=== PATIENT | male | born 1995 | race Hispanic/Latino ===

== ENCOUNTER 2020-06-13 13:55 | Emergency (ER) | payer OTHER ==
[2020-06-13] MEDS ORDERED: ACETAMINOPHEN 325 MG TAB ONE (14:03)
[2020-06-13] MEDS ORDERED: SODIUM CHLORIDE 0.9% 1000ML 1,000 ML IV ONE ×2 (14:40→14:57)
[2020-06-13 14:42] LABS: BASOPHILS % (AUTO) 0.5 % (0.0-5.0); EOSINOPHILS % (AUTO) 0.2 % (0.0-8.0); LYMPHOCYTES % (AUTO) 13.6 % (21.0-51.0); MEAN CORPUSCULAR HEMOGLOBIN 27.8 pg (27.0-33.0); MEAN CORPUSCULAR HGB CONC 32.9 g/dL (32.0-36.0); MEAN CORPUSCULAR VOLUME 84.7 fL (79-99); MONOCYTES % (AUTO) 3.8 % (3.0-13.0); NEUTROPHILS % (AUTO) 81.3 % (40.0-77.0); PLATELET COUNT (AUTO) 458 K/uL (130-400); RED BLOOD CELL COUNT(AUTO) 4.96 MIL/uL (4.50-6.20); RED CELL DISTRIBUTION WIDTH 12.3 % (11.0-15.5); WHITE BLOOD COUNT (AUTO) 8.4 K/uL (4.8-10.8)
[2020-06-13 14:46] LABS: ABG BASE EXCESS -0.3 mmol/L (-2.0-3.0); ABG HCO3 24.1 mmol/L (21.0-28.0); ABG OXYGEN SATURATION 97.7 % (95.0-99.0); ABG PCO2 39 mmHg (35-48)
[2020-06-13 14:54] LABS: INR 0.87 (0.85-1.15); PARTIAL THROMBOPLASTIN TIME 23.5 SEC (26.3-35.5); PROTHROMBIN TIME 9.4 SEC (9.6-11.6)
[2020-06-13 14:57] LABS: ALBUMIN 3.7 g/dL (3.5-5.0); BILIRUBIN,DIRECT 0.1 mg/dL (0.0-0.3); BILIRUBIN,TOTAL 0.3 mg/dL (0.2-1.0); CREATININE 0.6 mg/dL (0.5-1.5); TOTAL PROTEIN, SERUM 7.9 g/dL (6.0-8.3)
[2020-06-13] MEDS ORDERED: INSULIN HUMULIN R 100 UNIT/ML 3ML ONE (14:57)
[2020-06-13 15:16] LABS: POTASSIUM 3.6 mmol/L (3.5-5.1)
== END 2020-06-13 16:07 | disposition home or self-care (01) ==
LOC: EDH 13:55
DX: S93.401A Sprain of unspecified ligament of right ankle, initial encounter (principal); E11.65 Type 2 diabetes mellitus with hyperglycemia; X50.1XXA Overexertion from prolonged static or awkward postures, initial encounter; Y93.89 Activity, other specified; Y92.098 Other place in other non-institutional residence as the place of occurrence of the external cause; Y99.8 Other external cause status
CPT/HCPCS: 36415; 36600; 73610; 80048; 80076; 82435; 82550; 82803; 82947; 82948; 83605; 83690; 84132; 84295; 85018; 85025; 85610; 85730; 93005; 96361; 96374; 99285; J1815; J7030 ×2

== ENCOUNTER 2022-12-22 22:40 | Inpatient (IN) | payer OTHER ==
[~2022-12-22] VITALS: Ht 157.5 cm; Wt 47.4 kg
[2022-12-22] MEDS ORDERED: 0.9%NACL 1000ML 2,000 ML IV ONE (23:00)
[2022-12-22 23:07] LABS: ABG BASE EXCESS -8.1 mmol/L (-2.0-3.0); ABG HCO3 15.7 mmol/L (21.0-28.0); ABG OXYGEN SATURATION 97.2 % (95.0-99.0); ABG PCO2 29 mmHg (35-48)
[2022-12-22 23:11] LABS: BASOPHILS % (AUTO) 0.3 % (0.0-5.0); EOSINOPHILS % (AUTO) 0.2 % (0.0-8.0); HEMATOCRIT 37.1 % (42-54); LYMPHOCYTES % (AUTO) 20.5 % (21.0-51.0); MEAN CORPUSCULAR HEMOGLOBIN 25.8 pg (27.0-33.0); MEAN CORPUSCULAR HGB CONC 32.1 g/dL (32.0-36.0); MEAN CORPUSCULAR VOLUME 80.3 fL (79-99); MONOCYTES % (AUTO) 7.4 % (3.0-13.0); NEUTROPHILS % (AUTO) 71.1 % (40.0-77.0); PLATELET COUNT (AUTO) 391 K/uL (130-400); RED BLOOD CELL COUNT(AUTO) 4.62 MIL/uL (4.50-6.20); RED CELL DISTRIBUTION WIDTH 14.6 % (11.0-15.5); WHITE BLOOD COUNT (AUTO) 6.2 K/uL (4.8-10.8)
[2022-12-22 23:28] LABS: CARBON DIOXIDE 19 mmol/L (21-32); CHLORIDE 96 mmol/L (101-111); CREATININE 1.1 mg/dL (0.5-1.5); GLOMERULAR FILTR. RATE CALC 94 mL/min (>90); GLUCOSE,RANDOM 360 mg/dL (70-105); POTASSIUM 3.5 mmol/L (3.5-5.1); SODIUM SERUM 133 mmol/L (136-145); UREA NITROGEN, BLOOD 31 mg/dL (7-18)
[2022-12-22 23:32] LABS: ALANINE AMINOTRANSFERASE 21 U/L (12-78); ALBUMIN 4.2 g/dL (3.5-5.0); ASPARTATE AMINOTRANSFERASE 8 U/L (10-37); TOTAL PROTEIN, SERUM 8.8 g/dL (6.0-8.3)
[2022-12-22] MEDS ORDERED: INSULIN REGULAR, HUMAN 3ML 100 UNIT in 0.9%NACL 100ML 99 ML IV STA ×2 (23:41)
[2022-12-22 23:44] LABS: LIPASE < 50 U/L (114-286)
[2022-12-22] MEDS ORDERED: INSULIN HUMULIN R 100 UNIT/ML 3ML ONE (23:54)
[2022-12-22 23:58] LABS: MAGNESIUM 2.3 mg/dL (1.80-2.40); PHOSPHORUS 3.7 mg/dL (2.5-4.9)
[2022-12-23] MEDS ORDERED: D5W-1/2 NS/20MEQ KCL 1,000 ML IV SCH
[2022-12-23] MEDS ORDERED: POTASSIUM CHLORIDE 20MEQ/100ML 100 ML IV ONE (00:02)
[2022-12-23] MEDS ORDERED: ACETAMINOPHEN 325 MG TAB PO PRN ×2 (00:30)
[2022-12-23] MEDS ORDERED: LIDOCAINE HCL-MPF 1% 2ML VIAL IV PRN ×5 (00:30→09:30)
[2022-12-23] MEDS ORDERED: HYDROMORPHONE 1 MG INJ IV PRN (00:30)
[2022-12-23] MEDS ORDERED: 0.9%NACL 1000ML 1,000 ML IV SCH (00:30)
[2022-12-23] MEDS ORDERED: MORPHINE 2 MG SYG IV PRN (00:30)
[2022-12-23] MEDS ORDERED: POTASSIUM CHLORIDE 20 MEQ/100 ML BAG IV SCH (00:30)
[2022-12-23] MEDS ORDERED: POTASSIUM CHLORIDE 10MEQ/100ML 100 ML IV PRN (00:30)
[2022-12-23 01:48] LABS: APPEARANCE,URINE CLEAR (CLEAR); BILIRUBIN,URINE NEGATIVE (NEGATIVE); COLOR,URINE LIGHT-YELLOW (YELLOW); GLUCOSE, URINE (UA) >=1000 mg/dL (NEGATIVE); KETONES,URINE 150 mg/dL (NEGATIVE); LEUKOCYTE ESTERASE ,URINE NEGATIVE Leu/uL (NEGATIVE); NITRATE,URINE NEGATIVE (NEGATIVE); OCCULT BLOOD,URINE NEGATIVE (NEGATIVE); PH,URINE 6.5 (5.0-8.0); PROTEIN,URINE 30 mg/dL (NEGATIVE); UROBILINOGEN,URINE 0.2 mg/dL (0.2-1.0)
[2022-12-23 01:50] LABS: BACTERIA,URINE FEW /HPF (None Seen); MUCUS,URINE RARE LPF (None Seen); SQUAMOUS EPITHELIAL CELL,UR RARE /HPF (0-2)
[2022-12-23 03:50] LABS: CREATININE 0.8 mg/dL (0.5-1.5); POTASSIUM 3.3 mmol/L (3.5-5.1)
[2022-12-23 04:29] LABS: HEMOGLOBIN A1C 7.7 % (4.0-6.0)
[2022-12-23 06:40] LABS: AMPHET/METH SCREEN,URINE NEGATIVE (NEGATIVE); BARBITURATE SCREEN, URINE NEGATIVE (NEGATIVE); BENZODIAZEPINES SCREEN,URINE NEGATIVE (NEGATIVE); CANNABINOID SCREEN,URINE NEGATIVE (NEGATIVE); COCAINE SCREEN,URINE NEGATIVE (NEGATIVE); OPIATE SCREEN,URINE NEGATIVE (NEGATIVE); PHENCYCLIDINE SCREEN,URINE NEGATIVE (NEGATIVE)
[2022-12-23 08:10] LABS: CREATININE 0.6 mg/dL (0.5-1.5)
[2022-12-23 08:20] LABS: ABG BASE EXCESS -1.7 mmol/L (-2.0-3.0); ABG HCO3 21.9 mmol/L (21.0-28.0); ABG OXYGEN SATURATION 97.1 % (95.0-99.0); ABG PCO2 34 mmHg (35-48)
[2022-12-23] MEDS ORDERED: GLUCAGON 1MG KIT 1 MG ML IM PRN (08:30)
[2022-12-23] MEDS ORDERED: DEXTROSE 50%-WATER 50 ML DISP.SYRIN IV PRN (08:30)
[2022-12-23] MEDS ORDERED: POTASSIUM CHLORIDE 20MEQ/100ML 100 ML IV PRN ×4 (08:30→09:30)
[2022-12-23] MEDS ORDERED: POTASSIUM CHLORIDE 10% ELIXIR 20 MEQ/15 ML UDCUP PO PRN ×2 (08:30→09:30)
[2022-12-23 08:45] VITALS: BP 115/80
[2022-12-23 08:54] LABS: CHOLESTEROL 117 mg/dL (<200); HDL CHOLESTEROL 38 mg/dL (29-71); LDL DIRECT 55 mg/dL (0-99); TRIGLYCERIDES 83 mg/dL (30-200)
[2022-12-23] MEDS ORDERED: FAMOTIDINE 20MG VIAL IV SCH (09:00)
[2022-12-23] MEDS ORDERED: KCL 20 MEQ ERTAB PO PRN (09:30)
[2022-12-23] MEDS ORDERED: MAGNESIUM 2GM PREMIX 50ML 50 ML IV PRN (09:30)
[2022-12-23] MEDS: LACTATED RINGERS 1000ML 1,000 ML IV SCH (09:57)
[2022-12-23] MEDS: ENOXAPARIN SODIUM 40 MG/0.4 ML SYRINGE SQ SCH (09:58)
[2022-12-23] MEDS: FAMOTIDINE 20MG VIAL IV SCH ×2 (09:58→21:01)
[2022-12-23] MEDS: KCL 20 MEQ ERTAB PO PRN ×2 (09:59→18:15)
[2022-12-23] MEDS ORDERED: INSULIN GLARGINE 100 UNITS/ML 10 ML VIAL SQ ONE (10:30)
[2022-12-23] MEDS: ONDANSETRON 4MG INJ IV PRN ×2 (11:21→18:14)
[2022-12-23 12:00] VITALS: BP 140/82
[2022-12-23] MEDS: INSULIN HUMULIN R 100 UNIT/ML 3ML SQ SCH ×3 (13:03→20:28)
[2022-12-23 16:00] VITALS: BP 131/80
[2022-12-23] MEDS: INSULIN GLARGINE 100 UNITS/ML 10 ML VIAL SQ SCH (21:00)
[2022-12-23 21:06] VITALS: BP 102/70
[2022-12-24] VITALS (7 sets, daily range): BP systolic 100–141; BP diastolic 66–90
[2022-12-24] MEDS: ONDANSETRON 4MG INJ IV PRN ×2 (00:14→06:14)
[2022-12-24] MEDS: LACTATED RINGERS 1000ML 1,000 ML IV SCH ×2 (00:14→05:30)
[2022-12-24] MEDS: KCL 20 MEQ ERTAB PO PRN ×2 (00:15→06:20)
[2022-12-24 04:36] LABS: MEAN CORPUSCULAR HEMOGLOBIN 26.3 pg (27.0-33.0); MEAN CORPUSCULAR HGB CONC 32.6 g/dL (32.0-36.0); MEAN CORPUSCULAR VOLUME 80.6 fL (79-99); RED BLOOD CELL COUNT(AUTO) 4.22 MIL/uL (4.50-6.20); RED CELL DISTRIBUTION WIDTH 14.3 % (11.0-15.5)
[2022-12-24 04:43] LABS: CREATININE 0.6 mg/dL (0.5-1.5); MAGNESIUM 1.6 mg/dL (1.80-2.40); POTASSIUM 3.4 mmol/L (3.5-5.1)
[2022-12-24] MEDS: MAGNESIUM 2GM PREMIX 50ML 50 ML IV PRN (05:04)
[2022-12-24] MEDS: INSULIN HUMULIN R 100 UNIT/ML 3ML SQ SCH ×3 (06:13→20:48)
[2022-12-24] MEDS: INSULIN GLARGINE 100 UNITS/ML 10 ML VIAL SQ SCH ×2 (06:24→20:49)
[2022-12-24] MEDS: FAMOTIDINE 20MG VIAL IV SCH (09:19)
[2022-12-24] MEDS: ENOXAPARIN SODIUM 40 MG/0.4 ML SYRINGE SQ SCH (09:19)
[2022-12-24] MEDS: FAMOTIDINE 20MG TAB PO SCH (20:44)
[2022-12-25 03:32] VITALS: BP 105/75
[2022-12-25 05:25] LABS: BASOPHILS % (AUTO) 0.8 % (0.0-5.0); EOSINOPHILS % (AUTO) 3.6 % (0.0-8.0); HEMATOCRIT 33.4 % (42-54); LYMPHOCYTES % (AUTO) 33.2 % (21.0-51.0); MEAN CORPUSCULAR HEMOGLOBIN 26.6 pg (27.0-33.0); MEAN CORPUSCULAR HGB CONC 32.9 g/dL (32.0-36.0); MEAN CORPUSCULAR VOLUME 80.9 fL (79-99); MONOCYTES % (AUTO) 7.4 % (3.0-13.0); NEUTROPHILS % (AUTO) 54.6 % (40.0-77.0); PLATELET COUNT (AUTO) 294 K/uL (130-400); RED BLOOD CELL COUNT(AUTO) 4.13 MIL/uL (4.50-6.20); RED CELL DISTRIBUTION WIDTH 14.4 % (11.0-15.5)
[2022-12-25 05:37] LABS: CREATININE 0.5 mg/dL (0.5-1.5); MAGNESIUM 1.9 mg/dL (1.80-2.40); PHOSPHORUS 3.5 mg/dL (2.5-4.9)
[2022-12-25 05:38] LABS: POTASSIUM 2.9 mmol/L (3.5-5.1)
[2022-12-25] MEDS: INSULIN HUMULIN R 100 UNIT/ML 3ML SQ SCH ×4 (06:30→19:58)
[2022-12-25 08:13] VITALS: BP 96/68
[2022-12-25] MEDS: FAMOTIDINE 20MG TAB PO SCH ×2 (09:46→19:53)
[2022-12-25] MEDS: ENOXAPARIN SODIUM 40 MG/0.4 ML SYRINGE SQ SCH (09:47)
[2022-12-25] MEDS: KCL 20 MEQ ERTAB PO PRN ×4 (09:47→17:47)
[2022-12-25 11:19] VITALS: BP 105/68
[2022-12-25 17:14] VITALS: BP 111/75
[2022-12-25] MEDS: INSULIN GLARGINE 100 UNITS/ML 10 ML VIAL SQ SCH (19:57)
[2022-12-25 20:11] VITALS: BP 119/83
[2022-12-26] VITALS (7 sets, daily range): BP systolic 71–100; BP diastolic 33–61
[2022-12-26] MEDS: INSULIN HUMULIN R 100 UNIT/ML 3ML SQ SCH ×6 (06:09→17:07)
[2022-12-26] MEDS: MAGNESIUM 2GM PREMIX 50ML 50 ML IV PRN (06:56)
[2022-12-26 06:58] LABS: MAGNESIUM 1.9 mg/dL (1.80-2.40)
[2022-12-26] MEDS: ENOXAPARIN SODIUM 40 MG/0.4 ML SYRINGE SQ SCH (07:59)
[2022-12-26] MEDS: FAMOTIDINE 20MG TAB PO SCH (07:59)
[2022-12-26] MEDS: METRONIDAZOLE 500 MG TABLET PO SCH ×2 (08:54→13:52)
[2022-12-26] MEDS ORDERED: PHARMACY COMMUNICATION MISC SCH (09:00)
[2022-12-26] MEDS ORDERED: COMPOUND PO MISCELLANEOUS 1 EACH MISC MISC PRN (09:00)
[2022-12-26] MEDS ORDERED: 0.9%NACL 1000ML 1,000 ML IV SCH ×2 (09:00)
[2022-12-26] MEDS: VANCOMYCIN 250MG/5ML ORAL SOLUTION 40ML PO SCH ×4 (09:51→14:24)
[2022-12-26 10:15] LABS: MEAN CORPUSCULAR HEMOGLOBIN 26.4 pg (27.0-33.0); MEAN CORPUSCULAR HGB CONC 31.6 g/dL (32.0-36.0); MEAN CORPUSCULAR VOLUME 83.8 fL (79-99); PLATELET COUNT (AUTO) 283 K/uL (130-400); RED BLOOD CELL COUNT(AUTO) 3.82 MIL/uL (4.50-6.20)
[2022-12-26 10:24] LABS: CREATININE 0.6 mg/dL (0.5-1.5)
[2022-12-26 10:29] LABS: ALBUMIN 2.9 g/dL (3.5-5.0); TOTAL PROTEIN, SERUM 6.1 g/dL (6.0-8.3)
[2022-12-26 10:56] LABS: EOSINOPHILS % (MANUAL) 3 % (1-6); LYMPHOCYTES % (MANUAL) 22 % (22-44); MAN.DIFF COMMENT-IMPRESSION MANUAL DIFFERENTIAL; MONOCYTES % (MANUAL) 4 % (2-9); SEGMENTED NEUTROPHILS % 71 % (40-70)
[2022-12-26 10:57] LABS: PLATELET MORPHOLOGY COMMENT ADEQUATE
[2022-12-26] MEDS ORDERED: LOPERAMIDE HCL 2 MG CAP PO SCH (16:30)
[2022-12-26] MEDS ORDERED: METR-172 PO (16:35)
[2022-12-26] MEDS ORDERED: INSU100I35 SQ (16:35)
== END 2022-12-26 18:35 | disposition home or self-care (01) | DRG 639 ==
LOC: EDH 22:40 → EDHIP 22:41 → 2BH 12-23 08:54 → 3AH 12-23 14:25
PROVIDERS: ADMIT Internal Medicine; ATTEND Internal Medicine
DX: E11.10 Type 2 diabetes mellitus with ketoacidosis without coma (principal); E86.0 Dehydration; Z20.822 Contact with and (suspected) exposure to COVID-19; Z91.199 Patient's noncompliance with other medical treatment and regimen due to unspecified reason; Z79.4 Long term (current) use of insulin; Z83.3 Family history of diabetes mellitus
CPT/HCPCS: 36415; 36600; 71045; 74176; 80048; 80053; 80061; 80305; 81001; 82010; 82803; 82948; 83036; 83605; 83690; 83735; 83930; 84100; 84132; 84484; 85025; 85027; 86341; 87040; 87324; 87635; 87804; 87880; 93005; 97039; C9803; G0378; J1650; J1815; J2405; J3370; J3475; J3480; J3490; J7070

== ENCOUNTER 2023-01-10 13:06 | Observation (INO) | payer OTHER ==
[~2023-01-10] VITALS: Ht 157.5 cm; Wt 46.7 kg
[~2023-01-10 13:06] MED LIST: INSU100I35 SQ; METR-172 PO
[2023-01-10 13:59] LABS: BASOPHILS % (AUTO) 0.2 % (0.0-5.0); LYMPHOCYTES % (AUTO) 10.4 % (21.0-51.0); MEAN CORPUSCULAR HEMOGLOBIN 26.4 pg (27.0-33.0); MEAN CORPUSCULAR HGB CONC 31.9 g/dL (32.0-36.0); MEAN CORPUSCULAR VOLUME 82.8 fL (79-99); MONOCYTES % (AUTO) 1.5 % (3.0-13.0); NEUTROPHILS % (AUTO) 87.7 % (40.0-77.0); PLATELET COUNT (AUTO) 359 K/uL (130-400); RED BLOOD CELL COUNT(AUTO) 4.47 MIL/uL (4.50-6.20); RED CELL DISTRIBUTION WIDTH 15.2 % (11.0-15.5)
[2023-01-10] MEDS ORDERED: ZOSYN 3.375GM+NS 50ML 50 ML IVPB STA (14:07)
[2023-01-10 14:19] LABS: CREATININE 0.8 mg/dL (0.5-1.5); POTASSIUM 4.2 mmol/L (3.5-5.1)
[2023-01-10 14:24] LABS: ALBUMIN 3.9 g/dL (3.5-5.0); TOTAL PROTEIN, SERUM 8.1 g/dL (6.0-8.3)
[2023-01-10] MEDS ORDERED: 0.9%NACL 1000ML 1,638 ML IV ONE (14:30)
[2023-01-10 14:53] LABS: ABG OXYGEN SATURATION 75.9 % (95.0-99.0); BASE EXCESS,VENOUS BLOOD GAS 0.7 (-2.0-3.0); HCO3,VENOUS BLOOD GAS 25.8 (21.0-28.0); PCO2,VENOUS BLOOD GAS 43 (35-48); PH,VENOUS BLOOD GAS 7.395 (7.350-7.450)
[2023-01-10] MEDS ORDERED: ACETAMINOPHEN 500 MG TABLET PO ONE (15:00)
[2023-01-10 15:01] LABS: AMPHET/METH SCREEN,URINE NEGATIVE (NEGATIVE); BARBITURATE SCREEN, URINE NEGATIVE (NEGATIVE); BENZODIAZEPINES SCREEN,URINE NEGATIVE (NEGATIVE); CANNABINOID SCREEN,URINE NEGATIVE (NEGATIVE); COCAINE SCREEN,URINE NEGATIVE (NEGATIVE); OPIATE SCREEN,URINE NEGATIVE (NEGATIVE); PHENCYCLIDINE SCREEN,URINE NEGATIVE (NEGATIVE)
[2023-01-10 15:05] LABS: APPEARANCE,URINE CLEAR (CLEAR); BILIRUBIN,URINE NEGATIVE (NEGATIVE); COLOR,URINE LIGHT-YELLOW (YELLOW); GLUCOSE, URINE (UA) >=1000 mg/dL (NEGATIVE); KETONES,URINE 40 mg/dL (NEGATIVE); LEUKOCYTE ESTERASE ,URINE NEGATIVE Leu/uL (NEGATIVE); NITRATE,URINE NEGATIVE (NEGATIVE); OCCULT BLOOD,URINE NEGATIVE (NEGATIVE); PH,URINE 6.5 (5.0-8.0); PROTEIN,URINE NEGATIVE (NEGATIVE); UROBILINOGEN,URINE 0.2 mg/dL (0.2-1.0)
[2023-01-10 15:07] LABS: MUCUS,URINE RARE LPF (None Seen); RBC,URINE 0-1 /HPF (0-1); SQUAMOUS EPITHELIAL CELL,UR RARE /HPF (0-2); WBC,URINE 0-1 /HPF (0-1)
[2023-01-10] MEDS ORDERED: ONDANSETRON 4MG INJ ONE (16:07)
[2023-01-10] MEDS ORDERED: ONDANSETRON 4MG INJ IVP STA (16:11)
[2023-01-10] MEDS ORDERED: ONDANSETRON 4MG INJ IVP SCH (16:30)
[2023-01-10] MEDS ORDERED: MORPHINE 4 MG SYG IV PRN (19:30)
[2023-01-10] MEDS ORDERED: MORPHINE 2 MG SYG IV PRN (19:30)
[2023-01-10] MEDS ORDERED: ACETAMINOPHEN 325 MG TAB PO PRN ×2 (19:30)
[2023-01-10] MEDS ORDERED: ONDANSETRON 4MG INJ IV PRN (19:30)
[2023-01-10] MEDS: ZOSYN 3.375GM+NS 50ML 50 ML IVPB SCH (20:03)
[2023-01-10] MEDS: FAMOTIDINE 20MG VIAL IV SCH (20:14)
[2023-01-10] MEDS: LACTATED RINGERS 1000ML 1,000 ML IV SCH (20:15)
[2023-01-10] MEDS: INSULIN HUMULIN R 100 UNIT/ML 3ML SQ SCH (20:15)
[2023-01-11 00:12] VITALS: BP 108/61
[2023-01-11 03:12] VITALS: BP 127/75
[2023-01-11 03:39] LABS: BASOPHILS % (AUTO) 0.7 % (0.0-5.0); EOSINOPHILS % (AUTO) 1.5 % (0.0-8.0); HEMATOCRIT 30.8 % (42-54); LYMPHOCYTES % (AUTO) 26.5 % (21.0-51.0); MEAN CORPUSCULAR HEMOGLOBIN 26.4 pg (27.0-33.0); MEAN CORPUSCULAR HGB CONC 31.5 g/dL (32.0-36.0); MEAN CORPUSCULAR VOLUME 83.9 fL (79-99); MONOCYTES % (AUTO) 6.2 % (3.0-13.0); NEUTROPHILS % (AUTO) 64.9 % (40.0-77.0); PLATELET COUNT (AUTO) 287 K/uL (130-400); RED BLOOD CELL COUNT(AUTO) 3.67 MIL/uL (4.50-6.20); RED CELL DISTRIBUTION WIDTH 15.6 % (11.0-15.5); WHITE BLOOD COUNT (AUTO) 5.8 K/uL (4.8-10.8)
[2023-01-11 03:53] LABS: CREATININE 0.5 mg/dL (0.5-1.5); MAGNESIUM 1.9 mg/dL (1.80-2.40); PHOSPHORUS 4.2 mg/dL (2.5-4.9); POTASSIUM 3.4 mmol/L (3.5-5.1)
[2023-01-11 03:56] LABS: HEMOGLOBIN A1C 7.8 % (4.0-6.0)
[2023-01-11] MEDS ORDERED: MAGNESIUM 2GM PREMIX 50ML 50 ML IV PRN (04:30)
[2023-01-11] MEDS ORDERED: POTASSIUM CHLORIDE 20MEQ/100ML 100 ML IV PRN (04:30)
[2023-01-11] MEDS ORDERED: KCL 20 MEQ ERTAB PO PRN (04:30)
[2023-01-11] MEDS: ZOSYN 3.375GM+NS 50ML 50 ML IVPB SCH ×2 (04:56→13:00)
[2023-01-11] MEDS: INSULIN HUMULIN R 100 UNIT/ML 3ML SQ SCH ×2 (06:24→11:30)
[2023-01-11] MEDS: POTASSIUM CHLORIDE 10% ELIXIR 20 MEQ/15 ML UDCUP PO PRN ×2 (06:31→10:44)
[2023-01-11 07:55] VITALS: BP 115/77
[2023-01-11] MEDS ORDERED: ENOXAPARIN SODIUM 40 MG/0.4 ML SYRINGE SQ SCH (09:00)
[2023-01-11] MEDS: LACTATED RINGERS 1000ML 1,000 ML IV SCH (09:09)
[2023-01-11] MEDS: FAMOTIDINE 20MG VIAL IV SCH (09:09)
[2023-01-11] MEDS ORDERED: OMEP40CA21 PO (10:59)
[2023-01-11] MEDS ORDERED: SERT-438 PO (10:59)
[2023-01-11] MEDS ORDERED: DICY20TA2 PO (11:00)
[2023-01-11] MEDS ORDERED: CEPH500C2 PO (11:23)
[2023-01-11] MEDS ORDERED: METO5TAB87 PO (11:23)
[2023-01-11] MEDS ORDERED: METOCLOPRAMIDE 10 MG/2 ML VIAL IVP SCH (11:30)
[2023-01-11 12:15] VITALS: BP 132/83
== END 2023-01-11 14:10 | disposition home or self-care (01) ==
LOC: EDH 13:06 → INTOOBSV 13:07 → EDHIP 13:07 → 2AH 23:50
PROVIDERS: ADMIT Internal Medicine; ATTEND Internal Medicine
DX: A04.9 Bacterial intestinal infection, unspecified (principal); Z20.822 Contact with and (suspected) exposure to COVID-19; E86.1 Hypovolemia; I95.9 Hypotension, unspecified; E86.0 Dehydration; E11.9 Type 2 diabetes mellitus without complications; F32.A Depression, unspecified; Z51.5 Encounter for palliative care; Z79.899 Other long term (current) drug therapy
CPT/HCPCS: 96372 ×2; 96361 ×2; 96365; 96366 ×2; 96375 ×2; 82550; 84484; 80053; 82803; 83880; 80305; 85025 ×2; 87040 ×2; 87804 ×2; 82948 ×6; 83605 ×2; 82010; 81001; 36415 ×2; 87635; 71045; 74176; 76705; 99291; 93005 ×2; 36600; 84145; 96376; 96367; 83036; 83735; 84100; 80048; G0378 ×19; C9803; J3490 ×2; J7030; J2405; J2543 ×2; J1815; J3475; J1650; J2765

== ENCOUNTER 2023-01-20 21:25 | Inpatient (IN) | payer OTHER ==
[~2023-01-20] VITALS: Ht 157.5 cm; Wt 44.8 kg
[~2023-01-20 21:25] MED LIST changes: +CEPH500C2 PO; +DICY20TA2 PO; +METO5TAB87 PO; +OMEP40CA21 PO; +SERT-438 PO
[2023-01-20 22:36] LABS: BASOPHILS % (AUTO) 0.2 % (0.0-5.0); HEMATOCRIT 41.7 % (42-54); LYMPHOCYTES % (AUTO) 5.5 % (21.0-51.0); MEAN CORPUSCULAR HGB CONC 31.9 g/dL (32.0-36.0); MEAN CORPUSCULAR VOLUME 84.8 fL (79-99); MONOCYTES % (AUTO) 5.3 % (3.0-13.0); NEUTROPHILS % (AUTO) 88.4 % (40.0-77.0); PLATELET COUNT (AUTO) 293 K/uL (130-400); RED BLOOD CELL COUNT(AUTO) 4.92 MIL/uL (4.50-6.20); RED CELL DISTRIBUTION WIDTH 14.6 % (11.0-15.5); WHITE BLOOD COUNT (AUTO) 10.5 K/uL (4.8-10.8)
[2023-01-20 22:54] LABS: CHLORIDE 95 mmol/L (101-111); CREATININE 0.6 mg/dL (0.5-1.5); GLOMERULAR FILTR. RATE CALC 136 mL/min (>90); GLUCOSE,RANDOM 263 mg/dL (70-105); SODIUM SERUM 129 mmol/L (136-145); UREA NITROGEN, BLOOD 22 mg/dL (7-18)
[2023-01-20 22:57] LABS: ALANINE AMINOTRANSFERASE 12 U/L (12-78); ALBUMIN 1.8 g/dL (3.5-5.0); ASPARTATE AMINOTRANSFERASE 9 U/L (10-37); TOTAL PROTEIN, SERUM 4.6 g/dL (6.0-8.3)
[2023-01-20 22:59] LABS: LIPASE < 50 U/L (114-286)
[2023-01-20 23:07] LABS: CARBON DIOXIDE 6 mmol/L (21-32)
[2023-01-21 00:11] LABS: ABG BASE EXCESS -13.5 mmol/L (-2.0-3.0); ABG HCO3 10.3 mmol/L (21.0-28.0); ABG PCO2 21 mmHg (35-48)
[2023-01-21] MEDS ORDERED: 0.9%NACL 1000ML 1,000 ML IV ONE (00:30)
[2023-01-21] MEDS ORDERED: ONDANSETRON 4MG INJ IVP ONE (00:30)
[2023-01-21] MEDS ORDERED: INSULIN HUMULIN R 100 UNIT/ML 3ML IV ONE (00:30)
[2023-01-21] MEDS ORDERED: DEXTROSE 10%-WATER 250 ML IV.SOLN. IV SCH (00:30)
[2023-01-21] MEDS ORDERED: DEXTROSE 10%-WATER 1,000 ML IV ONE (00:44)
[2023-01-21] MEDS ORDERED: INSULIN REGULAR, HUMAN 3ML 100 UNIT in 0.9%NACL 100ML 100 ML IV SCH ×4 (01:00→01:30)
[2023-01-21] MEDS ORDERED: SODIUM CL 4MEQ/ML 30ML 154 MEQ in DEXTROSE 10%-WATER 961.5 ML IV SCH (01:00)
[2023-01-21 01:03] LABS: APPEARANCE,URINE CLEAR (CLEAR); BILIRUBIN,URINE NEGATIVE (NEGATIVE); COLOR,URINE LIGHT-YELLOW (YELLOW); GLUCOSE, URINE (UA) >=1000 mg/dL (NEGATIVE); KETONES,URINE 150 mg/dL (NEGATIVE); LEUKOCYTE ESTERASE ,URINE NEGATIVE Leu/uL (NEGATIVE); NITRATE,URINE NEGATIVE (NEGATIVE); OCCULT BLOOD,URINE NEGATIVE (NEGATIVE); PH,URINE 5.5 (5.0-8.0); PROTEIN,URINE 30 mg/dL (NEGATIVE); UROBILINOGEN,URINE 0.2 mg/dL (0.2-1.0)
[2023-01-21 01:04] LABS: MUCUS,URINE RARE LPF (None Seen); RBC,URINE 0-1 /HPF (0-1); SQUAMOUS EPITHELIAL CELL,UR RARE /HPF (0-2); WBC,URINE 0-1 /HPF (0-1)
[2023-01-21 01:17] LABS: AMPHET/METH SCREEN,URINE NEGATIVE (NEGATIVE); BARBITURATE SCREEN, URINE NEGATIVE (NEGATIVE); BENZODIAZEPINES SCREEN,URINE NEGATIVE (NEGATIVE); CANNABINOID SCREEN,URINE NEGATIVE (NEGATIVE); COCAINE SCREEN,URINE NEGATIVE (NEGATIVE); OPIATE SCREEN,URINE NEGATIVE (NEGATIVE); PHENCYCLIDINE SCREEN,URINE NEGATIVE (NEGATIVE)
[2023-01-21] MEDS ORDERED: LACTULOSE 20 GM/30 ML UDCUP PO PRN (01:30)
[2023-01-21] MEDS ORDERED: D5W-1/2 NS/20MEQ KCL 1,000 ML IV SCH (01:30)
[2023-01-21] MEDS ORDERED: MORPHINE 2 MG SYG IV PRN (01:30)
[2023-01-21] MEDS ORDERED: POTASSIUM CHLORIDE 10MEQ/100ML 100 ML IV PRN (01:30)
[2023-01-21] MEDS ORDERED: 0.9%NACL 1000ML 1,000 ML IV SCH (01:30)
[2023-01-21] MEDS ORDERED: ACETAMINOPHEN 325 MG TAB PO PRN (01:30)
[2023-01-21] MEDS ORDERED: MAGNESIUM 2GM PREMIX 50ML 50 ML IV SCH (01:30)
[2023-01-21 01:48] LABS: ABG BASE EXCESS -9.1 mmol/L (-2.0-3.0); ABG HCO3 13.9 mmol/L (21.0-28.0); ABG OXYGEN SATURATION 98.1 % (95.0-99.0); ABG PCO2 24 mmHg (35-48)
[2023-01-21 02:22] LABS: CREATININE 1.1 mg/dL (0.5-1.5); POTASSIUM 3.8 mmol/L (3.5-5.1)
[2023-01-21] MEDS: ONDANSETRON 4MG INJ IV PRN ×3 (05:39→21:59)
[2023-01-21 05:46] LABS: ABG BASE EXCESS -7.6 mmol/L (-2.0-3.0); ABG PCO2 28 mmHg (35-48)
[2023-01-21 05:50] LABS: CREATININE 0.9 mg/dL (0.5-1.5); POTASSIUM 3.6 mmol/L (3.5-5.1)
[2023-01-21] MEDS: FAMOTIDINE 20MG VIAL IV SCH ×2 (09:21→21:59)
[2023-01-21 09:37] LABS: CREATININE 0.8 mg/dL (0.5-1.5); POTASSIUM 3.4 mmol/L (3.5-5.1)
[2023-01-21 09:41] LABS: ABG BASE EXCESS -5.1 mmol/L (-2.0-3.0); ABG HCO3 18.7 mmol/L (21.0-28.0); ABG OXYGEN SATURATION 97.4 % (95.0-99.0); ABG PCO2 32 mmHg (35-48)
[2023-01-21] MEDS: INSULIN GLARGINE 100 UNITS/ML 10 ML VIAL SQ SCH ×2 (13:54→22:13)
[2023-01-21 13:59] LABS: CREATININE 0.8 mg/dL (0.5-1.5); POTASSIUM 3.7 mmol/L (3.5-5.1)
[2023-01-21 16:35] VITALS: BP 117/73
[2023-01-21] MEDS: 0.9%NACL 1000ML 1,000 ML IV SCH (18:45)
[2023-01-21 19:34] LABS: CREATININE 0.7 mg/dL (0.5-1.5); POTASSIUM 3.4 mmol/L (3.5-5.1)
[2023-01-21 21:30] VITALS: BP 105/65
[2023-01-21 21:59] LABS: CREATININE 0.4 mg/dL (0.5-1.5)
[2023-01-21] MEDS ORDERED: KCL 20 MEQ ERTAB PO ONE (22:00)
[2023-01-21 22:03] LABS: POTASSIUM 2.2 mmol/L (3.5-5.1)
[2023-01-21] MEDS: INSULIN HUMULIN R 100 UNIT/ML 3ML SQ SCH (22:12)
[2023-01-21 22:15] LABS: ABG BASE EXCESS -6.2 mmol/L (-2.0-3.0); ABG HCO3 17.4 mmol/L (21.0-28.0); ABG OXYGEN SATURATION 97.6 % (95.0-99.0); ABG PCO2 30 mmHg (35-48)
[2023-01-21] MEDS ORDERED: MAGNESIUM 2GM PREMIX 50ML 50 ML IV ONE (22:19)
[2023-01-21] MEDS ORDERED: POTASSIUM CHLORIDE 20 MEQ/100 ML BAG IV SCH (22:30)
[2023-01-21 23:41] VITALS: BP 109/67
[2023-01-22] MEDS: 0.9%NACL 1000ML 1,000 ML IV SCH ×4 (00:44→19:17)
[2023-01-22 04:21] VITALS: BP 116/81
[2023-01-22] MEDS: ONDANSETRON 4MG INJ IV PRN ×2 (05:25→19:15)
[2023-01-22] MEDS: INSULIN HUMULIN R 100 UNIT/ML 3ML SQ SCH ×4 (06:51→20:13)
[2023-01-22 06:54] LABS: MAGNESIUM 1.9 mg/dL (1.80-2.40); POTASSIUM 3.1 mmol/L (3.5-5.1)
[2023-01-22 07:30] LABS: HEMATOCRIT 32.6 % (42-54); MEAN CORPUSCULAR HEMOGLOBIN 26.8 pg (27.0-33.0); MEAN CORPUSCULAR HGB CONC 33.4 g/dL (32.0-36.0); MEAN CORPUSCULAR VOLUME 80.1 fL (79-99); RED BLOOD CELL COUNT(AUTO) 4.07 MIL/uL (4.50-6.20); RED CELL DISTRIBUTION WIDTH 14.9 % (11.0-15.5); WHITE BLOOD COUNT (AUTO) 6.9 K/uL (4.8-10.8)
[2023-01-22 07:41] LABS: ALBUMIN 3.2 g/dL (3.5-5.0); CREATININE 0.6 mg/dL (0.5-1.5); POTASSIUM 3.1 mmol/L (3.5-5.1); TOTAL PROTEIN, SERUM 6.4 g/dL (6.0-8.3)
[2023-01-22 08:00] VITALS: BP 110/73
[2023-01-22] MEDS ORDERED: KCL 20 MEQ ERTAB PO PRN (08:30)
[2023-01-22] MEDS ORDERED: POTASSIUM CHLORIDE 20MEQ/100ML 100 ML IV PRN (08:30)
[2023-01-22] MEDS: FAMOTIDINE 20MG VIAL IV SCH ×2 (08:57→20:13)
[2023-01-22] MEDS: MAGNESIUM 2GM PREMIX 50ML 50 ML IV PRN (08:57)
[2023-01-22] MEDS ORDERED: KCL 20 MEQ ERTAB PO ONE (09:30)
[2023-01-22] MEDS: METOCLOPRAMIDE 10 MG/2 ML VIAL IVP SCH ×2 (10:31→20:13)
[2023-01-22 12:00] VITALS: BP 113/80
[2023-01-22 16:00] VITALS: BP 127/88
[2023-01-22 19:23] VITALS: BP 130/84
[2023-01-22] MEDS: INSULIN GLARGINE 100 UNITS/ML 10 ML VIAL SQ SCH (20:14)
[2023-01-22] MEDS: ACETAMINOPHEN 325 MG TAB PO PRN (20:23)
[2023-01-22 23:30] VITALS: BP 138/84
[2023-01-23] MEDS: 0.9%NACL 1000ML 1,000 ML IV SCH ×4 (02:15→22:03)
[2023-01-23 03:38] VITALS: BP 112/68
[2023-01-23] MEDS: INSULIN HUMULIN R 100 UNIT/ML 3ML SQ SCH ×4 (05:47→20:02)
[2023-01-23] MEDS: ONDANSETRON 4MG INJ IV PRN (07:16)
[2023-01-23 07:24] LABS: POTASSIUM 2.8 mmol/L (3.5-5.1)
[2023-01-23] MEDS: INSULIN GLARGINE 100 UNITS/ML 10 ML VIAL SQ SCH ×2 (07:30→20:13)
[2023-01-23 07:38] VITALS: BP 107/75
[2023-01-23] MEDS: FAMOTIDINE 20MG VIAL IV SCH ×2 (07:42→20:07)
[2023-01-23 07:43] LABS: HEMATOCRIT 33.4 % (42-54); MEAN CORPUSCULAR HGB CONC 34.1 g/dL (32.0-36.0); MEAN CORPUSCULAR VOLUME 79.1 fL (79-99); RED BLOOD CELL COUNT(AUTO) 4.22 MIL/uL (4.50-6.20); RED CELL DISTRIBUTION WIDTH 14.6 % (11.0-15.5); WHITE BLOOD COUNT (AUTO) 9.5 K/uL (4.8-10.8)
[2023-01-23] MEDS: POTASSIUM CHLORIDE 10% ELIXIR 20 MEQ/15 ML UDCUP PO PRN ×5 (07:46→20:08)
[2023-01-23 08:15] LABS: ALANINE AMINOTRANSFERASE 16 U/L (12-78); ALBUMIN 3.2 g/dL (3.5-5.0); CARBON DIOXIDE 27 mmol/L (21-32); CHLORIDE 102 mmol/L (101-111); CREATININE 0.4 mg/dL (0.5-1.5); GLOMERULAR FILTR. RATE CALC 153 mL/min (>90); GLUCOSE,RANDOM 80 mg/dL (70-105); SODIUM SERUM 140 mmol/L (136-145); TOTAL PROTEIN, SERUM 6.7 g/dL (6.0-8.3); UREA NITROGEN, BLOOD 3 mg/dL (7-18)
[2023-01-23 08:25] LABS: LIPASE < 50 U/L (114-286)
[2023-01-23 08:31] LABS: ASPARTATE AMINOTRANSFERASE 12 U/L (10-37)
[2023-01-23] MEDS ORDERED: METOCLOPRAMIDE 10 MG/2 ML VIAL IVP SCH (09:00)
[2023-01-23] MEDS ORDERED: MAGNESIUM 2GM PREMIX 50ML 50 ML IV ONE (09:30)
[2023-01-23] MEDS: MAGNESIUM 2GM PREMIX 50ML 50 ML IV PRN (09:48)
[2023-01-23] MEDS: ENOXAPARIN SODIUM 40 MG/0.4 ML SYRINGE SQ SCH (09:49)
[2023-01-23] MEDS ORDERED: MAGNESIUM 2GM PREMIX 50ML 50 ML IV PRN (10:00)
[2023-01-23 11:20] VITALS: BP 138/98
[2023-01-23 15:18] LABS: MAGNESIUM 2.5 mg/dL (1.80-2.40); POTASSIUM 3.6 mmol/L (3.5-5.1)
[2023-01-23 18:26] VITALS: BP 89/57
[2023-01-23 20:00] VITALS: BP 126/90
[2023-01-24] VITALS: BP 122/82
[2023-01-24] MEDS: ACETAMINOPHEN 325 MG TAB PO PRN ×2 (03:39→09:24)
[2023-01-24 04:00] VITALS: BP 128/88
[2023-01-24] MEDS: INSULIN HUMULIN R 100 UNIT/ML 3ML SQ SCH ×2 (05:33→11:07)
[2023-01-24] MEDS: 0.9%NACL 1000ML 1,000 ML IV SCH ×3 (05:33→16:21)
[2023-01-24] MEDS: INSULIN GLARGINE 100 UNITS/ML 10 ML VIAL SQ SCH (06:19)
[2023-01-24 08:00] VITALS: BP 121/81
[2023-01-24] MEDS: FAMOTIDINE 20MG VIAL IV SCH (09:24)
[2023-01-24] MEDS: ENOXAPARIN SODIUM 40 MG/0.4 ML SYRINGE SQ SCH (09:24)
[2023-01-24 11:42] VITALS: BP 129/88
[2023-01-24 16:00] VITALS: BP 124/88
[2023-01-24] MEDS ORDERED: INSULIN HUMULIN R 100 UNIT/ML 3ML SQ SCH (16:30)
[2023-01-24] MEDS ORDERED: INSULIN GLARGINE 100 UNITS/ML 10 ML VIAL SQ SCH (21:00)
== END 2023-01-24 19:50 | disposition home or self-care (01) | DRG 638 ==
LOC: EDH 21:25 → EDHIP 21:26 → 4BH 01-21 16:25
PROVIDERS: ADMIT Hospitalist; ATTEND Hospitalist
DX: E11.10 Type 2 diabetes mellitus with ketoacidosis without coma (principal); E87.1 Hypo-osmolality and hyponatremia; Z68.1 Body mass index [BMI] 19.9 or less, adult; Z20.822 Contact with and (suspected) exposure to COVID-19; K52.9 Noninfective gastroenteritis and colitis, unspecified; E86.0 Dehydration; R63.6 Underweight; E66.3 Overweight; F32.A Depression, unspecified; Z79.4 Long term (current) use of insulin; Z91.148 Patient's other noncompliance with medication regimen for other reason; Z83.3 Family history of diabetes mellitus; Z82.3 Family history of stroke
CPT/HCPCS: 36415; 36600; 71046; 74018; 78264; 80048; 80053; 80305; 81001; 82010; 82803; 82948; 83690; 83735; 84132; 85025; 85027; 87635; 87804; 97039; A9541; C9803; G0378; J1650; J1815; J2405; J2765; J3475; J3480; J3490; J7030; J7131

== ENCOUNTER 2023-02-05 07:11 | Emergency (ER) | payer OTHER ==
[~2023-02-05] VITALS: Ht 157.5 cm; Wt 47.6 kg
[~2023-02-05 07:11] MED LIST changes: -CEPH500C2 PO; -METR-172 PO
[2023-02-05 07:43] LABS: BASOPHILS % (AUTO) 0.2 % (0.0-5.0); HEMATOCRIT 36.8 % (42-54); LYMPHOCYTES % (AUTO) 12.2 % (21.0-51.0); MEAN CORPUSCULAR HEMOGLOBIN 26.5 pg (27.0-33.0); MEAN CORPUSCULAR HGB CONC 33.4 g/dL (32.0-36.0); MEAN CORPUSCULAR VOLUME 79.3 fL (79-99); PLATELET COUNT (AUTO) 378 K/uL (130-400); RED BLOOD CELL COUNT(AUTO) 4.64 MIL/uL (4.50-6.20); RED CELL DISTRIBUTION WIDTH 14.6 % (11.0-15.5); WHITE BLOOD COUNT (AUTO) 6.7 K/uL (4.8-10.8)
[2023-02-05 07:46] LABS: APPEARANCE,URINE CLEAR (CLEAR); BILIRUBIN,URINE NEGATIVE (NEGATIVE); COLOR,URINE YELLOW (YELLOW); GLUCOSE, URINE (UA) 500 mg/dL (NEGATIVE); KETONES,URINE 150 mg/dL (NEGATIVE); LEUKOCYTE ESTERASE ,URINE 75 Leu/uL (NEGATIVE); NITRATE,URINE NEGATIVE (NEGATIVE); OCCULT BLOOD,URINE NEGATIVE (NEGATIVE); PROTEIN,URINE 50 mg/dL (NEGATIVE); UROBILINOGEN,URINE 0.2 mg/dL (0.2-1.0)
[2023-02-05 07:53] LABS: MUCUS,URINE FEW LPF (None Seen); RBC,URINE 0-1 /HPF (0-1); SQUAMOUS EPITHELIAL CELL,UR RARE /HPF (0-2)
[2023-02-05 08:00] LABS: CARBON DIOXIDE 25 mmol/L (21-32); CHLORIDE 99 mmol/L (101-111); CREATININE 0.7 mg/dL (0.5-1.5); GLOMERULAR FILTR. RATE CALC 130 mL/min (>90); GLUCOSE,RANDOM 229 mg/dL (70-105); POTASSIUM 3.7 mmol/L (3.5-5.1); SODIUM SERUM 137 mmol/L (136-145); UREA NITROGEN, BLOOD 27 mg/dL (7-18)
[2023-02-05 08:05] LABS: ALANINE AMINOTRANSFERASE 39 U/L (12-78); ALBUMIN 4.2 g/dL (3.5-5.0); ASPARTATE AMINOTRANSFERASE 12 U/L (10-37); TOTAL PROTEIN, SERUM 8.4 g/dL (6.0-8.3)
[2023-02-05 08:08] LABS: LIPASE < 50 U/L (114-286)
[2023-02-05] MEDS ORDERED: ONDANSETRON 4MG INJ IVP ONE (08:30)
[2023-02-05] MEDS ORDERED: FAMOTIDINE 20MG VIAL IV ONE (08:30)
[2023-02-05] MEDS ORDERED: 0.9%NACL 1000ML 1,000 ML IV ONE (08:30)
[2023-02-05] MEDS ORDERED: PROCHLORPERAZINE 10MG/2ML INJ IV ONE (08:30)
[2023-02-05 10:33] LABS: ABG BASE EXCESS -5.4 mmol/L (-2.0-3.0); ABG OXYGEN SATURATION 98.2 % (95.0-99.0); ABG PCO2 23 mmHg (35-48)
[2023-02-05 11:31] VITALS: BP 103/70
[2023-02-05] MEDS ORDERED: FAMO-136 PO (12:07)
[2023-02-05] MEDS ORDERED: ONDA4TAB10 PO (12:07)
== END 2023-02-05 12:30 | disposition home or self-care (01) ==
LOC: EDH 07:11
DX: E11.65 Type 2 diabetes mellitus with hyperglycemia (principal); K21.00 Gastro-esophageal reflux disease with esophagitis, without bleeding; E86.0 Dehydration; R10.84 Generalized abdominal pain; R11.2 Nausea with vomiting, unspecified; Z79.899 Other long term (current) drug therapy
CPT/HCPCS: 99284; 96374; 96375; 96361; 80053; 82803; 83690; 85025; 87088; 82948; 81001; 36415; 36600; J3490; J7030; J0780; J2405

== ENCOUNTER 2023-02-09 04:06 | Emergency (ER) | payer OTHER ==
[~2023-02-09] VITALS: Ht 157.5 cm; Wt 47.2 kg
[~2023-02-09 04:06] MED LIST changes: +FAMO-136 PO; +ONDA4TAB10 PO
[2023-02-09 04:37] LABS: BASOPHILS % (AUTO) 0.3 % (0.0-5.0); EOSINOPHILS % (AUTO) 0.4 % (0.0-8.0); HEMATOCRIT 35.8 % (42-54); LYMPHOCYTES % (AUTO) 15.2 % (21.0-51.0); MEAN CORPUSCULAR HEMOGLOBIN 27.2 pg (27.0-33.0); MEAN CORPUSCULAR HGB CONC 33.8 g/dL (32.0-36.0); MEAN CORPUSCULAR VOLUME 80.4 fL (79-99); MONOCYTES % (AUTO) 3.9 % (3.0-13.0); NEUTROPHILS % (AUTO) 79.8 % (40.0-77.0); PLATELET COUNT (AUTO) 318 K/uL (130-400); RED BLOOD CELL COUNT(AUTO) 4.45 MIL/uL (4.50-6.20); RED CELL DISTRIBUTION WIDTH 14.1 % (11.0-15.5); WHITE BLOOD COUNT (AUTO) 6.9 K/uL (4.8-10.8)
[2023-02-09 04:45] LABS: CREATININE 0.6 mg/dL (0.5-1.5); POTASSIUM 3.1 mmol/L (3.5-5.1)
[2023-02-09 04:50] LABS: PROTHROMBIN TIME 10.9 SEC (9.6-11.6)
[2023-02-09 04:51] LABS: PARTIAL THROMBOPLASTIN TIME 25.3 SEC (26.3-35.5)
[2023-02-09 04:58] LABS: ALBUMIN 3.7 g/dL (3.5-5.0); TOTAL PROTEIN, SERUM 7.3 g/dL (6.0-8.3)
[2023-02-09 05:05] LABS: B-TYPE NATRIURETIC PEPTIDE < 5 pg/mL (0-100)
[2023-02-09] MEDS ORDERED: ONDA-104 PO (05:53)
[2023-02-09] MEDS ORDERED: INSULIN HUMULIN 70/30 100 UNIT/ML 3ML SQ SCH (06:00)
[2023-02-09] MEDS ORDERED: POTASSIUM BICARB/CIT AC 25 MEQ TABLET.EFF PO ONE (06:00)
[2023-02-09 07:15] VITALS: BP 127/89
== END 2023-02-09 07:21 | disposition home or self-care (01) ==
LOC: EDH 04:06
DX: E11.9 Type 2 diabetes mellitus without complications (principal); E87.6 Hypokalemia; Z79.899 Other long term (current) drug therapy; Z98.890 Other specified postprocedural states; Z88.8 Allergy status to other drugs, medicaments and biological substances
CPT/HCPCS: 99284; 71045; 82550; 84484; 80053; 83880; 85025; 85610; 85730; 87040 ×2; 82948; 83605; 83930; 36415; 96372; J1815

== ENCOUNTER 2023-03-16 10:22 | Emergency (ER) | payer BC, OTHER ==
[~2023-03-16] VITALS: Ht 157.5 cm; Wt 59.0 kg
[~2023-03-16 10:22] MED LIST changes: +ONDA-104 PO
[2023-03-16 10:53] LABS: BASOPHILS % (AUTO) 0.3 % (0.0-5.0); EOSINOPHILS % (AUTO) 0.6 % (0.0-8.0); HEMATOCRIT 39.5 % (42-54); LYMPHOCYTES % (AUTO) 22.3 % (21.0-51.0); MEAN CORPUSCULAR HEMOGLOBIN 27.1 pg (27.0-33.0); MEAN CORPUSCULAR HGB CONC 32.9 g/dL (32.0-36.0); MEAN CORPUSCULAR VOLUME 82.5 fL (79-99); MONOCYTES % (AUTO) 2.9 % (3.0-13.0); NEUTROPHILS % (AUTO) 73.3 % (40.0-77.0); PLATELET COUNT (AUTO) 437 K/uL (130-400); RED BLOOD CELL COUNT(AUTO) 4.79 MIL/uL (4.50-6.20); RED CELL DISTRIBUTION WIDTH 14.1 % (11.0-15.5); WHITE BLOOD COUNT (AUTO) 6.6 K/uL (4.8-10.8)
[2023-03-16] MEDS ORDERED: ONDANSETRON 4MG INJ IVP ONE (11:00)
[2023-03-16] MEDS ORDERED: MAG/ALUM/SIMETH 30 ML UDCUP PO ONE (11:00)
[2023-03-16] MEDS ORDERED: COMPOUND PO MISCELLANEOUS 1 EACH MISC MISC PRN (11:00)
[2023-03-16] MEDS ORDERED: LIDOCAINE HCL 2% VISCOUS 15 ML UDCUP PO ONE (11:00)
[2023-03-16 11:04] LABS: CARBON DIOXIDE 20 mmol/L (21-32); CHLORIDE 95 mmol/L (101-111); CREATININE 0.8 mg/dL (0.5-1.5); GLOMERULAR FILTR. RATE CALC 124 mL/min (>90); GLUCOSE,RANDOM 287 mg/dL (70-105); POTASSIUM 3.3 mmol/L (3.5-5.1); SODIUM SERUM 136 mmol/L (136-145); UREA NITROGEN, BLOOD 23 mg/dL (7-18)
[2023-03-16 11:09] LABS: ALANINE AMINOTRANSFERASE 43 U/L (12-78); ASPARTATE AMINOTRANSFERASE 15 U/L (10-37); CREATINE KINASE, TOTAL 19 U/L (21-232); LIPASE < 50 U/L (114-286); TOTAL PROTEIN, SERUM 7.6 g/dL (6.0-8.3)
[2023-03-16] MEDS ORDERED: VISCOUS PO ONE ×3 (11:30)
[2023-03-16] MEDS ORDERED: ALUM PO ONE ×3 (11:30)
[2023-03-16] MEDS ORDERED: MAG PO ONE ×3 (11:30)
[2023-03-16] MEDS ORDERED: LIDOCAINE HCL 2% PO ONE ×3 (11:30)
[2023-03-16] MEDS ORDERED: DICYCLOMINE HCL PO ONE ×3 (11:30)
[2023-03-16] MEDS ORDERED: SIMETH PO ONE ×3 (11:30)
[2023-03-16] MEDS ORDERED: 0.9%NACL 1000ML 1,000 ML IV ONE ×2 (12:30→15:00)
[2023-03-16 13:35] LABS: ABG OXYGEN SATURATION 91.3 % (95.0-99.0); BASE EXCESS,VENOUS BLOOD GAS -2.9 (-2.0-3.0); HCO3,VENOUS BLOOD GAS 19.7 (21.0-28.0); PCO2,VENOUS BLOOD GAS 29 (35-48)
[2023-03-16] MEDS ORDERED: KETOROLAC 15MG/ML VIAL (15MG/ML) IV ONE (15:00)
[2023-03-16 18:12] VITALS: BP 112/64
== END 2023-03-16 18:13 | disposition home or self-care (01) ==
LOC: EDH 10:22
DX: E11.65 Type 2 diabetes mellitus with hyperglycemia (principal); E11.10 Type 2 diabetes mellitus with ketoacidosis without coma; R53.1 Weakness; R11.2 Nausea with vomiting, unspecified; E86.0 Dehydration; K21.00 Gastro-esophageal reflux disease with esophagitis, without bleeding; Z79.899 Other long term (current) drug therapy
CPT/HCPCS: 99284; 96374; 96361; 71045; 96375; 82550; 84484; 80053; 82803; 83690; 85025; 82948; 82010; 36415; 93005; 36600; J7030 ×2; J2405; J1885

== ENCOUNTER 2023-03-21 14:00 | Inpatient (IN) | payer BC ==
[~2023-03-21] VITALS: Ht 152.4 cm; Wt 39.1 kg
[2023-03-21] VITALS (14 sets, daily range): BP systolic 86–128; BP diastolic 45–91
[2023-03-21] MEDS ORDERED: INSULIN HUMULIN R 100 UNIT/ML 3ML IV ONE (15:00)
[2023-03-21] MEDS ORDERED: 0.9%NACL 1000ML 2,000 ML IV ONE (15:00)
[2023-03-21 15:12] LABS: BASOPHILS % (AUTO) 0.2 % (0.0-5.0); HEMATOCRIT 39.6 % (42-54); LYMPHOCYTES % (AUTO) 6.4 % (21.0-51.0); MEAN CORPUSCULAR HEMOGLOBIN 27.8 pg (27.0-33.0); MEAN CORPUSCULAR HGB CONC 33.8 g/dL (32.0-36.0); MEAN CORPUSCULAR VOLUME 82.2 fL (79-99); MONOCYTES % (AUTO) 3.4 % (3.0-13.0); NEUTROPHILS % (AUTO) 89.3 % (40.0-77.0); PLATELET COUNT (AUTO) 436 K/uL (130-400); RED BLOOD CELL COUNT(AUTO) 4.82 MIL/uL (4.50-6.20); RED CELL DISTRIBUTION WIDTH 14.5 % (11.0-15.5); WHITE BLOOD COUNT (AUTO) 12.9 K/uL (4.8-10.8)
[2023-03-21 15:42] LABS: ALBUMIN 4.3 g/dL (3.5-5.0); CREATININE 1.2 mg/dL (0.5-1.5); TOTAL PROTEIN, SERUM 8.1 g/dL (6.0-8.3)
[2023-03-21 15:50] LABS: POTASSIUM 2.8 mmol/L (3.5-5.1)
[2023-03-21 15:52] LABS: APPEARANCE,URINE CLEAR (CLEAR); BILIRUBIN,URINE NEGATIVE (NEGATIVE); COLOR,URINE LIGHT-YELLOW (YELLOW); GLUCOSE, URINE (UA) >=1000 mg/dL (NEGATIVE); KETONES,URINE 150 mg/dL (NEGATIVE); LEUKOCYTE ESTERASE ,URINE NEGATIVE Leu/uL (NEGATIVE); NITRATE,URINE NEGATIVE (NEGATIVE); OCCULT BLOOD,URINE NEGATIVE (NEGATIVE); PH,URINE 6.5 (5.0-8.0); PROTEIN,URINE 70 mg/dL (NEGATIVE); UROBILINOGEN,URINE 0.2 mg/dL (0.2-1.0)
[2023-03-21 16:00] LABS: BACTERIA,URINE RARE /HPF (None Seen); MUCUS,URINE RARE LPF (None Seen); OTHER CASTS, URINE 4 /LPF (None Seen); SQUAMOUS EPITHELIAL CELL,UR RARE /HPF (0-2)
[2023-03-21] MEDS ORDERED: POTASSIUM BICARB/CIT AC 25 MEQ TABLET.EFF PO ONE (16:00)
[2023-03-21] MEDS: POTASSIUM CHLORIDE 10MEQ/100ML 10 MEQ/100 ML ML IV SCH ×5 (16:14→22:14)
[2023-03-21] MEDS ORDERED: ONDANSETRON 4MG INJ IVP ONE (16:30)
[2023-03-21] MEDS ORDERED: MORPHINE 4 MG SYG IM ONE (16:30)
[2023-03-21 16:45] LABS: ABG BASE EXCESS -11.4 mmol/L (-2.0-3.0); ABG OXYGEN SATURATION 97.9 % (95.0-99.0); ABG PCO2 23 mmHg (35-48)
[2023-03-21] MEDS ORDERED: INSULIN REGULAR, HUMAN 3ML 100 UNIT in 0.9%NACL 100ML 100 ML IV SCH ×2 (17:00)
[2023-03-21] MEDS ORDERED: 0.9%NACL 1000ML 1,000 ML IV SCH (17:00)
[2023-03-21] MEDS ORDERED: POTASSIUM CHLORIDE 20MEQ/10ML 20 MEQ in 0.9%NACL 1000ML 1,000 ML IV SCH (17:00)
[2023-03-21] MEDS: D5W-1/2 NS/20MEQ KCL 1,000 ML IV SCH ×2 (18:19→23:34)
[2023-03-21 22:07] LABS: CREATININE 0.7 mg/dL (0.5-1.5); MAGNESIUM 1.7 mg/dL (1.80-2.40); PHOSPHORUS 2.3 mg/dL (2.5-4.9); POTASSIUM 3.6 mmol/L (3.5-5.1)
[2023-03-21] MEDS: HYDROMORPHONE 0.5 MG SYG (0.5MG/0.5ML) IVP PRN (22:32)
[2023-03-21] MEDS: ONDANSETRON 4MG INJ IVP PRN (22:32)
[2023-03-21] MEDS: MAGNESIUM 2GM PREMIX 50ML 50 ML IV SCH (23:29)
[2023-03-22] VITALS (37 sets, daily range): BP systolic 87–134; BP diastolic 48–97
[2023-03-22] MEDS: HYDROMORPHONE 0.5 MG SYG (0.5MG/0.5ML) IVP PRN ×4 (03:22→21:17)
[2023-03-22 05:08] LABS: CREATININE 0.6 mg/dL (0.5-1.5); MAGNESIUM 1.9 mg/dL (1.80-2.40); PHOSPHORUS 1.5 mg/dL (2.5-4.9)
[2023-03-22 05:55] LABS: POTASSIUM 2.7 mmol/L (3.5-5.1)
[2023-03-22] MEDS: D5W-1/2 NS/20MEQ KCL 1,000 ML IV SCH (06:15)
[2023-03-22] MEDS: POTASSIUM CHLORIDE 10MEQ/100ML 100 ML IV PRN ×5 (06:15→11:53)
[2023-03-22 08:24] LABS: CREATININE 0.5 mg/dL (0.5-1.5); POTASSIUM 3.3 mmol/L (3.5-5.1)
[2023-03-22] MEDS: SERTRALINE HCL 50 MG TABLET PO SCH ×2 (09:00→09:25)
[2023-03-22] MEDS: ONDANSETRON 4MG INJ IVP PRN ×3 (09:41→21:16)
[2023-03-22] MEDS ORDERED: INSULIN GLARGINE 100 UNITS/ML 10 ML VIAL SQ ONE (09:45)
[2023-03-22 11:46] LABS: CREATININE 0.5 mg/dL (0.5-1.5); MAGNESIUM 1.9 mg/dL (1.80-2.40); PHOSPHORUS 1.3 mg/dL (2.5-4.9); POTASSIUM 3.8 mmol/L (3.5-5.1)
[2023-03-22] MEDS: INSULIN HUMULIN R 100 UNIT/ML 3ML SQ SCH ×4 (12:02→21:18)
[2023-03-22 15:20] LABS: CREATININE 0.5 mg/dL (0.5-1.5); MAGNESIUM 1.8 mg/dL (1.80-2.40); POTASSIUM 3.1 mmol/L (3.5-5.1)
[2023-03-22] MEDS ORDERED: ERYTHROMYCIN LACTOBIONATE 250 MG in 0.9%NACL 100ML 100 ML IV SCH (16:00)
[2023-03-22] MEDS ORDERED: COMPOUND IV REFRIGERATED 1 EACH IVSOLN MISC PRN (16:30)
[2023-03-22] MEDS: ERYTHROMYCIN LACTOBIONATE 250 MG in 0.9%NACL 100ML 100 ML IV SCH ×2 (17:45→23:25)
[2023-03-22] MEDS: INSULIN GLARGINE 100 UNITS/ML 10 ML VIAL SQ SCH ×2 (21:00→21:19)
[2023-03-22] MEDS ORDERED: VANC125C6 PO (22:36)
[2023-03-22] MEDS ORDERED: [UNRECOGNIZED DRUG - CODE] PO (22:36)
[2023-03-22] MEDS ORDERED: MIDO10TA PO (22:36)
[2023-03-22] MEDS ORDERED: NAPR-1023 PO (22:36)
[2023-03-22 22:47] LABS: AMPHET/METH SCREEN,URINE NEGATIVE (NEGATIVE); BARBITURATE SCREEN, URINE NEGATIVE (NEGATIVE); BENZODIAZEPINES SCREEN,URINE NEGATIVE (NEGATIVE); CANNABINOID SCREEN,URINE NEGATIVE (NEGATIVE); COCAINE SCREEN,URINE NEGATIVE (NEGATIVE); OPIATE SCREEN,URINE NEGATIVE (NEGATIVE); PHENCYCLIDINE SCREEN,URINE NEGATIVE (NEGATIVE)
[2023-03-22] MEDS ORDERED: D5 NS WITH 20 mEq KCl 1000ML IV SCH (23:00)
[2023-03-23] MEDS: KETOROLAC 15MG/ML VIAL (15MG/ML) IV PRN (01:19)
[2023-03-23] MEDS: HYDROMORPHONE 0.5 MG SYG (0.5MG/0.5ML) IVP PRN ×4 (02:31→21:30)
[2023-03-23 04:00] VITALS: BP 121/87
[2023-03-23] MEDS: ONDANSETRON 4MG INJ IVP PRN ×3 (04:15→21:30)
[2023-03-23 04:48] LABS: HEMATOCRIT 30.2 % (42-54); MEAN CORPUSCULAR HEMOGLOBIN 27.1 pg (27.0-33.0); MEAN CORPUSCULAR HGB CONC 33.4 g/dL (32.0-36.0); RED BLOOD CELL COUNT(AUTO) 3.73 MIL/uL (4.50-6.20); RED CELL DISTRIBUTION WIDTH 14.4 % (11.0-15.5); WHITE BLOOD COUNT (AUTO) 11.4 K/uL (4.8-10.8)
[2023-03-23 05:00] LABS: ALBUMIN 3.2 g/dL (3.5-5.0); CREATININE 0.5 mg/dL (0.5-1.5); MAGNESIUM 1.8 mg/dL (1.80-2.40); TOTAL PROTEIN, SERUM 6.2 g/dL (6.0-8.3)
[2023-03-23] MEDS: ERYTHROMYCIN LACTOBIONATE 250 MG in 0.9%NACL 100ML 100 ML IV SCH ×4 (06:02→21:33)
[2023-03-23] MEDS: POTASSIUM CHLORIDE 10MEQ/100ML 100 ML IV PRN (06:03)
[2023-03-23] MEDS: INSULIN HUMULIN R 100 UNIT/ML 3ML SQ SCH ×4 (07:30→21:00)
[2023-03-23 08:19] VITALS: BP 122/86
[2023-03-23] MEDS: INSULIN GLARGINE 100 UNITS/ML 10 ML VIAL SQ SCH ×2 (08:33→21:31)
[2023-03-23] MEDS: SERTRALINE HCL 50 MG TABLET PO SCH (08:34)
[2023-03-23] MEDS: D5 NS WITH 20 mEq KCl 1000ML 1,000 ML IV SCH ×2 (10:30→19:00)
[2023-03-23] MEDS: METOCLOPRAMIDE 10 MG/2 ML VIAL IVP SCH ×4 (11:30→21:00)
[2023-03-23 12:00] VITALS: BP 127/97
[2023-03-23 16:00] VITALS: BP 110/78
[2023-03-23 20:28] VITALS: BP 118/82
[2023-03-23] MEDS: PAROXETINE HCL 20 MG TABLET PO SCH ×2 (21:00→21:30)
[2023-03-24] VITALS (7 sets, daily range): BP systolic 92–139; BP diastolic 62–86
[2023-03-24] MEDS: HYDROMORPHONE 0.5 MG SYG (0.5MG/0.5ML) IVP PRN ×4 (03:21→20:41)
[2023-03-24] MEDS: ERYTHROMYCIN LACTOBIONATE 250 MG in 0.9%NACL 100ML 100 ML IV SCH ×4 (03:22→22:11)
[2023-03-24] MEDS: METOCLOPRAMIDE 10 MG/2 ML VIAL IVP SCH (04:24)
[2023-03-24] MEDS: INSULIN HUMULIN R 100 UNIT/ML 3ML SQ SCH ×3 (06:29→20:35)
[2023-03-24] MEDS: D5 NS WITH 20 mEq KCl 1000ML 1,000 ML IV SCH ×3 (06:41→19:38)
[2023-03-24] MEDS: INSULIN GLARGINE 100 UNITS/ML 10 ML VIAL SQ SCH ×2 (06:59→20:48)
[2023-03-24 07:11] LABS: BASOPHILS % (AUTO) 0.2 % (0.0-5.0); EOSINOPHILS % (AUTO) 0.2 % (0.0-8.0); HEMATOCRIT 29.3 % (42-54); LYMPHOCYTES % (AUTO) 13.7 % (21.0-51.0); MEAN CORPUSCULAR HEMOGLOBIN 27.8 pg (27.0-33.0); MEAN CORPUSCULAR HGB CONC 34.5 g/dL (32.0-36.0); MEAN CORPUSCULAR VOLUME 80.7 fL (79-99); MONOCYTES % (AUTO) 7.3 % (3.0-13.0); NEUTROPHILS % (AUTO) 78.1 % (40.0-77.0); PLATELET COUNT (AUTO) 275 K/uL (130-400); RED BLOOD CELL COUNT(AUTO) 3.63 MIL/uL (4.50-6.20); RED CELL DISTRIBUTION WIDTH 13.9 % (11.0-15.5); WHITE BLOOD COUNT (AUTO) 6.6 K/uL (4.8-10.8)
[2023-03-24 07:28] LABS: CREATININE 0.3 mg/dL (0.5-1.5)
[2023-03-24 07:33] LABS: POTASSIUM 2.6 mmol/L (3.5-5.1)
[2023-03-24] MEDS: POTASSIUM CHLORIDE 10MEQ/100ML 100 ML IV PRN ×2 (07:38→10:54)
[2023-03-24] MEDS: SERTRALINE HCL 50 MG TABLET PO SCH (09:00)
[2023-03-24] MEDS: PAROXETINE HCL 20 MG TABLET PO SCH ×2 (09:00→20:35)
[2023-03-24 10:16] LABS: INR 1.06 (0.85-1.15); PROTHROMBIN TIME 12.2 SEC (9.6-11.6)
[2023-03-24 10:17] LABS: PARTIAL THROMBOPLASTIN TIME 33.8 SEC (26.3-35.5)
[2023-03-24] MEDS ORDERED: PROPOFOL 10 MG/ML 20ML VIAL IV ONE (11:26)
[2023-03-24] MEDS ORDERED: LIDOCAINE PF 100MG/5ML (2%) SYRINGE 5ML ONE (11:32)
[2023-03-24] MEDS: METOCLOPRAMIDE 10 MG TABLET PO SCH ×3 (16:02→20:35)
[2023-03-24] MEDS ORDERED: COMPOUND IV REFRIGERATED 1 EACH IVSOLN MISC PRN (16:30)
[2023-03-24] MEDS: KCL 20 MEQ ERTAB PO SCH ×2 (16:34→20:36)
[2023-03-24] MEDS: ONDANSETRON 4MG INJ IVP PRN (16:34)
[2023-03-24] MEDS: MAGNESIUM 2GM PREMIX 50ML 50 ML IV SCH (20:45)
[2023-03-25 00:20] VITALS: BP 125/87
[2023-03-25] MEDS: HYDROMORPHONE 0.5 MG SYG (0.5MG/0.5ML) IVP PRN ×4 (01:20→21:53)
[2023-03-25] MEDS: ONDANSETRON 4MG INJ IVP PRN ×2 (01:20→21:53)
[2023-03-25 04:00] VITALS: BP 119/75
[2023-03-25 04:43] LABS: HEMATOCRIT 31.4 % (42-54); MEAN CORPUSCULAR HEMOGLOBIN 27.2 pg (27.0-33.0); MEAN CORPUSCULAR HGB CONC 33.4 g/dL (32.0-36.0); MEAN CORPUSCULAR VOLUME 81.3 fL (79-99); RED BLOOD CELL COUNT(AUTO) 3.86 MIL/uL (4.50-6.20); WHITE BLOOD COUNT (AUTO) 6.4 K/uL (4.8-10.8)
[2023-03-25] MEDS: ERYTHROMYCIN LACTOBIONATE 250 MG in 0.9%NACL 100ML 100 ML IV SCH ×4 (04:51→21:53)
[2023-03-25 04:53] LABS: CREATININE 0.3 mg/dL (0.5-1.5)
[2023-03-25] MEDS: METOCLOPRAMIDE 10 MG TABLET PO SCH ×4 (05:14→19:17)
[2023-03-25] MEDS: INSULIN HUMULIN R 100 UNIT/ML 3ML SQ SCH ×4 (05:14→21:00)
[2023-03-25] MEDS: INSULIN GLARGINE 100 UNITS/ML 10 ML VIAL SQ SCH ×2 (05:26→21:00)
[2023-03-25] MEDS: POTASSIUM CHLORIDE 10MEQ/100ML 100 ML IV PRN ×2 (05:57→07:17)
[2023-03-25 08:35] VITALS: BP 117/77
[2023-03-25] MEDS: SERTRALINE HCL 50 MG TABLET PO SCH (09:00)
[2023-03-25] MEDS: PAROXETINE HCL 20 MG TABLET PO SCH ×2 (09:00→19:44)
[2023-03-25] MEDS: KETOROLAC 15MG/ML VIAL (15MG/ML) IV PRN ×2 (11:36→11:55)
[2023-03-25] MEDS: D5 NS WITH 20 mEq KCl 1000ML 1,000 ML IV SCH ×2 (11:39→19:43)
[2023-03-25 12:00] VITALS: BP 105/81
[2023-03-25] MEDS ORDERED: PHARMACY COMMUNICATION MISC SCH (12:30)
[2023-03-25] MEDS ORDERED: POTASSIUM CHLORIDE 10% ELIXIR 20 MEQ/15 ML UDCUP PO PRN (12:30)
[2023-03-25] MEDS ORDERED: KCL 20 MEQ ERTAB PO PRN (12:30)
[2023-03-25] MEDS: KCL 20 MEQ ERTAB PO SCH ×3 (12:41→16:56)
[2023-03-25 16:00] VITALS: BP 110/82
[2023-03-25 19:52] VITALS: BP 120/85
[2023-03-26] VITALS (28 sets, daily range): BP systolic 96–148; BP diastolic 58–89
[2023-03-26] MEDS: HYDROMORPHONE 0.5 MG SYG (0.5MG/0.5ML) IVP PRN ×3 (02:59→11:43)
[2023-03-26] MEDS: ONDANSETRON 4MG INJ IVP PRN (03:55)
[2023-03-26] MEDS: ERYTHROMYCIN LACTOBIONATE 250 MG in 0.9%NACL 100ML 100 ML IV SCH ×4 (03:55→22:09)
[2023-03-26] MEDS: D5 NS WITH 20 mEq KCl 1000ML 1,000 ML IV SCH ×3 (05:48→18:37)
[2023-03-26] MEDS: INSULIN HUMULIN R 100 UNIT/ML 3ML SQ SCH ×4 (05:49→20:57)
[2023-03-26] MEDS: METOCLOPRAMIDE 10 MG TABLET PO SCH ×5 (05:49→20:50)
[2023-03-26] MEDS: INSULIN GLARGINE 100 UNITS/ML 10 ML VIAL SQ SCH ×2 (05:50→20:58)
[2023-03-26] MEDS: PAROXETINE HCL 20 MG TABLET PO SCH ×3 (09:00→20:48)
[2023-03-26] MEDS: SERTRALINE HCL 50 MG TABLET PO SCH ×2 (09:00→09:07)
[2023-03-26 11:29] LABS: CREATININE 0.4 mg/dL (0.5-1.5); MAGNESIUM 1.7 mg/dL (1.80-2.40); POTASSIUM 4.1 mmol/L (3.5-5.1)
[2023-03-26] MEDS: KCL 20 MEQ ERTAB PO SCH ×2 (12:39→20:50)
[2023-03-26] MEDS ORDERED: PROPOFOL 10 MG/ML 20ML VIAL IV ONE (12:45)
[2023-03-26] MEDS ORDERED: LIDOCAINE PF 100MG/5ML (2%) SYRINGE 5ML ONE (12:45)
[2023-03-27] VITALS (7 sets, daily range): BP systolic 90–118; BP diastolic 52–85
[2023-03-27] MEDS: ONDANSETRON 4MG INJ IVP PRN ×2 (00:16→21:49)
[2023-03-27] MEDS: D5 NS WITH 20 mEq KCl 1000ML 1,000 ML IV SCH ×3 (03:46→23:00)
[2023-03-27] MEDS: ERYTHROMYCIN LACTOBIONATE 250 MG in 0.9%NACL 100ML 100 ML IV SCH ×4 (03:57→22:04)
[2023-03-27] MEDS: INSULIN GLARGINE 100 UNITS/ML 10 ML VIAL SQ SCH ×2 (06:24→20:18)
[2023-03-27] MEDS: INSULIN HUMULIN R 100 UNIT/ML 3ML SQ SCH ×4 (06:25→20:17)
[2023-03-27] MEDS: METOCLOPRAMIDE 10 MG TABLET PO SCH ×4 (06:28→20:17)
[2023-03-27] MEDS: MAGNESIUM 2GM PREMIX 50ML 50 ML IV SCH (08:56)
[2023-03-27] MEDS: SERTRALINE HCL 50 MG TABLET PO SCH (08:56)
[2023-03-27] MEDS: PAROXETINE HCL 20 MG TABLET PO SCH ×2 (08:59→20:16)
[2023-03-27] MEDS: KCL 20 MEQ ERTAB PO SCH ×2 (08:59→20:00)
[2023-03-27 10:41] LABS: MEAN CORPUSCULAR HGB CONC 32.4 g/dL (32.0-36.0); MEAN CORPUSCULAR VOLUME 83.3 fL (79-99); RED BLOOD CELL COUNT(AUTO) 3.96 MIL/uL (4.50-6.20); RED CELL DISTRIBUTION WIDTH 14.1 % (11.0-15.5); WHITE BLOOD COUNT (AUTO) 4.6 K/uL (4.8-10.8)
[2023-03-27 10:47] LABS: CREATININE 0.3 mg/dL (0.5-1.5); POTASSIUM 3.5 mmol/L (3.5-5.1)
[2023-03-27] MEDS ORDERED: BACITRACIN 1 EACH PACKET TP PRN (16:30)
[2023-03-27] MEDS ORDERED: PANT40TA55 PO (17:26)
[2023-03-27] MEDS ORDERED: BACI500P3 TP (17:26)
[2023-03-27] MEDS ORDERED: METO10TA41 PO (17:26)
[2023-03-27] MEDS ORDERED: POTA-192 PO (17:26)
[2023-03-27] MEDS: TRAMADOL HCL 50 MG TABLET PO PRN (18:23)
[2023-03-28] MEDS: TRAMADOL HCL 50 MG TABLET PO PRN ×2 (02:36→10:21)
[2023-03-28 03:25] VITALS: BP 97/53
[2023-03-28] MEDS: D5 NS WITH 20 mEq KCl 1000ML 1,000 ML IV SCH (03:34)
[2023-03-28] MEDS: ERYTHROMYCIN LACTOBIONATE 250 MG in 0.9%NACL 100ML 100 ML IV SCH ×2 (03:35→08:58)
[2023-03-28] MEDS: INSULIN HUMULIN R 100 UNIT/ML 3ML SQ SCH ×3 (06:21→16:21)
[2023-03-28] MEDS: METOCLOPRAMIDE 10 MG TABLET PO SCH ×3 (06:21→16:22)
[2023-03-28] MEDS: INSULIN GLARGINE 100 UNITS/ML 10 ML VIAL SQ SCH (06:21)
[2023-03-28 08:00] VITALS: BP 114/75
[2023-03-28] MEDS: PAROXETINE HCL 20 MG TABLET PO SCH (08:58)
[2023-03-28] MEDS: KCL 20 MEQ ERTAB PO SCH (08:58)
[2023-03-28] MEDS: SERTRALINE HCL 50 MG TABLET PO SCH (08:59)
[2023-03-28 11:38] VITALS: BP 123/90
[2023-03-28] MEDS ORDERED: DEXTROSE 50%-WATER 50 ML DISP.SYRIN IV ONE ×2 (15:18→15:30)
[2023-03-28 16:00] VITALS: BP 103/63
[2023-03-28] MEDS ORDERED: NAPROXEN 500 MG TABLET PO PRN (17:00)
[2023-03-28] MEDS ORDERED: ONDANSETRON 4MG TABLET PO PRN (17:00)
[2023-03-28] MEDS ORDERED: DICYCLOMINE HCL 20 MG TAB PO SCH (21:00)
[2023-03-28] MEDS ORDERED: NON-FORMULARY MEDICATION 1 EACH (Midodrine HCl 10 MG) PO SCH (21:00)
[2023-03-28] MEDS ORDERED: MIDODRINE HCL 5 MG TABLET PO SCH (21:00)
== END 2023-03-28 17:42 | disposition home or self-care (01) | DRG 637 ==
LOC: EDH 14:00 → EDHIP 16:45 → OBSVTOIN 16:45 → 2BH 19:30 → 3DH 03-22 15:25
PROVIDERS: ADMIT Internal Medicine; ATTEND Internal Medicine
PROC: 0DB98ZX Excision of Duodenum, Via Natural or Artificial Opening Endoscopic, Diagnostic (ICD-10-PCS; principal; 2023-03-26)
PROC: 0DB78ZX Excision of Stomach, Pylorus, Via Natural or Artificial Opening Endoscopic, Diagnostic (ICD-10-PCS; 2023-03-26)
PROC: 0DB58ZX Excision of Esophagus, Via Natural or Artificial Opening Endoscopic, Diagnostic (ICD-10-PCS; 2023-03-26)
DX: E11.10 Type 2 diabetes mellitus with ketoacidosis without coma (principal); E43 Unspecified severe protein-calorie malnutrition; Z68.1 Body mass index [BMI] 19.9 or less, adult; K22.10 Ulcer of esophagus without bleeding; R64 Cachexia; Z20.822 Contact with and (suspected) exposure to COVID-19; F32.A Depression, unspecified; E11.43 Type 2 diabetes mellitus with diabetic autonomic (poly)neuropathy; E87.6 Hypokalemia; D72.829 Elevated white blood cell count, unspecified; D64.9 Anemia, unspecified; R62.7 Adult failure to thrive; K29.00 Acute gastritis without bleeding; K31.84 Gastroparesis; Z91.199 Patient's noncompliance with other medical treatment and regimen due to unspecified reason; Z83.3 Family history of diabetes mellitus
CPT/HCPCS: 36415; 36600; 43239; 71045; 72040; 72070; 74176; 80048; 80053; 80305; 81001; 82010; 82803; 82948; 83605; 83735; 84100; 84132; 84145; 84484; 85025; 85027; 85610; 85730; 86701; 87040; 87390; 87635; 93005; 97039; A4606; G0378; J1170; J1364; J1815; J1885; J2001; J2270; J2405; J2704; J2765; J3475; J3480; J7030; J7070

== ENCOUNTER 2023-07-29 05:11 | Observation (INO) | payer BC ==
[~2023-07-29 05:11] MED LIST changes: +BACI500P3 TP; -FAMO-136 PO; +METO10TA41 PO; -METO5TAB87 PO; +MIDO10TA PO; +NAPR-1023 PO; -OMEP40CA21 PO; -ONDA4TAB10 PO; +PANT40TA55 PO; +POTA-192 PO
[2023-07-29] MEDS ORDERED: KETAMINE HCL 100 MG/ML 5ML VIAL IJ ONE (05:29)
[2023-07-29 05:48] LABS: BASOPHILS # (AUTO) 0.07 K/uL (0.00-0.20); BASOPHILS % (AUTO) 0.8 % (0.0-5.0); EOSINOPHILS # (AUTO) 0.34 K/uL (0.00-0.70); EOSINOPHILS % (AUTO) 4.1 % (0.0-8.0); HEMATOCRIT 34.2 % (42-54); IMMATURE GRANULOCYTE ABSOLUTE 0.09 K/uL (0-1); LYMPHOCYTES # (AUTO) 1.4 K/uL (1.0-4.8); MEAN CORPUSCULAR HGB CONC 31.3 g/dL (32.0-36.0); MEAN CORPUSCULAR VOLUME 86.1 fL (79-99); MONOCYTES # (AUTO) 0.4 K/uL (0.1-1.0); MONOCYTES % (AUTO) 4.7 % (3.0-13.0); NEUTROPHILS % (AUTO) 72.3 % (40.0-77.0); PLATELET COUNT (AUTO) 375 K/uL (130-400); RED BLOOD CELL COUNT(AUTO) 3.97 MIL/uL (4.50-6.20); RED CELL DISTRIBUTION WIDTH 13.9 % (11.0-15.5); WHITE BLOOD COUNT (AUTO) 8.3 K/uL (4.8-10.8)
[2023-07-29 05:55] LABS: CARBON DIOXIDE 21 mmol/L (21-32); CHLORIDE 99 mmol/L (101-111); CREATININE 0.7 mg/dL (0.5-1.5); GLOMERULAR FILTR. RATE CALC 129 mL/min (>90); GLUCOSE,RANDOM 139 mg/dL (70-105); POTASSIUM 3.8 mmol/L (3.5-5.1); SODIUM SERUM 137 mmol/L (136-145); UREA NITROGEN, BLOOD 17 mg/dL (7-18)
[2023-07-29] MEDS ORDERED: HALOPERIDOL INJ 5 MG/ML VIAL IV SCH (06:00)
[2023-07-29] MEDS ORDERED: LORAZEPAM 2 MG/ML 1 ML VIAL IVP ONE (06:00)
[2023-07-29] MEDS ORDERED: KETAMINE 50MG/ML SYRINGE 50 MG/ML DISP.SYRIN IM ONE ×2 (06:00→06:30)
[2023-07-29 06:03] LABS: ABG BASE EXCESS -9.8 mmol/L (-2.0-3.0); ABG HCO3 14.7 mmol/L (21.0-28.0); ABG OXYGEN SATURATION 99.4 % (95.0-99.0); ABG PCO2 29 mmHg (35-48); ABG PH 7.322 (7.350-7.450); PO2, ARTERIAL BG 212.9 mmHg (83.0-108.0); VENT MODE, BG 3LNC (ROOM AIR)
[2023-07-29 06:03] LABS: ALANINE AMINOTRANSFERASE 37 U/L (12-78); ALBUMIN 3.8 g/dL (3.5-5.0); ASPARTATE AMINOTRANSFERASE 17 U/L (10-37); BILIRUBIN,TOTAL 0.2 mg/dL (0.2-1.0); CREATINE KINASE, TOTAL 124 U/L (21-232); SALICYLATE 3.8 mg/dL (2.8-20.0); TOTAL PROTEIN, SERUM 7.2 g/dL (6.0-8.3)
[2023-07-29 06:05] LABS: AMPHET/METH SCREEN,URINE NEGATIVE (NEGATIVE); BARBITURATE SCREEN, URINE NEGATIVE (NEGATIVE); BENZODIAZEPINES SCREEN,URINE NEGATIVE (NEGATIVE); CANNABINOID SCREEN,URINE NEGATIVE (NEGATIVE); COCAINE SCREEN,URINE NEGATIVE (NEGATIVE); OPIATE SCREEN,URINE NEGATIVE (NEGATIVE); PHENCYCLIDINE SCREEN,URINE NEGATIVE (NEGATIVE)
[2023-07-29 06:15] LABS: ADD UA MICROSCOPIC YES; APPEARANCE,URINE CLEAR (CLEAR); BILIRUBIN,URINE NEGATIVE (NEGATIVE); COLOR,URINE LIGHT-YELLOW (YELLOW); GLUCOSE, URINE (UA) >=1000 mg/dL (NEGATIVE); KETONES,URINE NEGATIVE (NEGATIVE); LEUKOCYTE ESTERASE ,URINE NEGATIVE Leu/uL (NEGATIVE); NITRATE,URINE NEGATIVE (NEGATIVE); OCCULT BLOOD,URINE NEGATIVE (NEGATIVE); PROTEIN,URINE 10 mg/dL (NEGATIVE); UROBILINOGEN,URINE 0.2 mg/dL (0.2-1.0)
[2023-07-29 06:17] LABS: ACETAMINOPHEN < 1 mcg/mL (10-29)
[2023-07-29 06:17] LABS: BACTERIA,URINE RARE /HPF (None Seen); MUCUS,URINE FEW LPF (None Seen); RBC,URINE 0-1 /HPF (0-1); SQUAMOUS EPITHELIAL CELL,UR RARE /HPF (0-2)
[2023-07-29 06:30] LABS: SARS-CoV-2, RNA, NAAT NEGATIVE SARS CoV-2 (NEGATIVE)
[2023-07-29] MEDS ORDERED: WATER IV SCH (06:30)
[2023-07-29] MEDS ORDERED: NACL IV SCH (06:30)
[2023-07-29] MEDS ORDERED: DEXTROSE 10% IV SCH (06:30)
[2023-07-29] MEDS ORDERED: GUAIFENESIN SUGAR-FREE 100 MG/5 ML UDCUP PO PRN (08:00)
[2023-07-29] MEDS ORDERED: KCL 20 MEQ ERTAB PO PRN (08:00)
[2023-07-29] MEDS ORDERED: DOCUSATE SODIUM 100 MG CAP PO PRN (08:00)
[2023-07-29] MEDS ORDERED: MAG/ALUM/SIMETH 30 ML UDCUP PO PRN (08:00)
[2023-07-29] MEDS ORDERED: POTASSIUM CHLORIDE 10% ELIXIR 20 MEQ/15 ML UDCUP PO PRN (08:00)
[2023-07-29] MEDS ORDERED: DIPHENHYDRAMINE HCL 25 MG CAPSULE PO PRN (08:00)
[2023-07-29] MEDS ORDERED: NITROGLYCERIN 0.4 MG SL TAB SL PRN (08:00)
[2023-07-29] MEDS ORDERED: MAGNESIUM 2GM PREMIX 50ML 50 ML IV PRN (08:00)
[2023-07-29] MEDS ORDERED: LACTULOSE 20 GM/30 ML UDCUP PO PRN (08:00)
[2023-07-29] MEDS ORDERED: ZOLPIDEM TARTRATE 5 MG TAB PO PRN (08:00)
[2023-07-29] MEDS ORDERED: POTASSIUM CHLORIDE 20MEQ/100ML 100 ML IV PRN ×2 (08:00)
[2023-07-29] MEDS ORDERED: ACETAMINOPHEN 325 MG TAB PO PRN ×2 (08:00)
[2023-07-29] MEDS ORDERED: POLYETHYLENE GLYCOL 3350 17 GM POWD.PACK PO PRN (08:00)
[2023-07-29] MEDS ORDERED: ONDANSETRON 4MG INJ IV PRN (08:00)
[2023-07-29] MEDS ORDERED: ALPRAZOLAM 0.5 MG TABLET PO PRN (08:00)
[2023-07-29] MEDS ORDERED: GLUCAGON 1MG KIT 1 MG ML IM PRN (08:00)
[2023-07-29] MEDS ORDERED: GUAIFENESIN-DM 200/20 MG 10 ML PO PRN (08:00)
[2023-07-29] MEDS ORDERED: DEXTROSE 50%-WATER 50 ML DISP.SYRIN IV PRN (08:00)
[2023-07-29] MEDS ORDERED: DiphenhydrAMINE HCL 50 MG/ML VIAL IV PRN (08:00)
[2023-07-29] MEDS ORDERED: ZOSYN 3.375GM +NS 50ML IVPB ONE (08:30)
[2023-07-29 09:23] LABS: THYROID STIMULATING HORMONE 4.07 uIU/mL (0.36-3.74)
[2023-07-29] MEDS: ENOXAPARIN SODIUM 30 MG/0.3 ML SQ SCH (09:37)
[2023-07-29] MEDS: FAMOTIDINE 20MG VIAL IV SCH ×2 (09:37→19:52)
[2023-07-29] MEDS: INSULIN HUMULIN R 100 UNIT/ML 3ML SQ SCH ×3 (11:30→20:48)
[2023-07-29 16:15] VITALS: O2SAT 98
[2023-07-29] MEDS: 0.9%NACL 1000ML 1,000 ML IV SCH ×3 (16:30→17:31)
[2023-07-29] MEDS ORDERED: GLIM2TAB30 PO (16:38)
[2023-07-29] MEDS ORDERED: ERGO50CA PO (16:38)
[2023-07-29] MEDS ORDERED: METF-527 PO (16:38)
[2023-07-29 16:59] VITALS: BP 99/62; PULSE 99; RESP 17
[2023-07-29] MEDS: CEFTRIAXONE 2GM VIAL IVPB SCH (17:25)
[2023-07-29 18:55] LABS: RAPID GROUP A STREP negative (NEGATIVE)
[2023-07-29 19:03] LABS: INFLUENZA TYPE A Negative For Type A (NEGATIVE); INFLUENZA TYPE B Negative For Type B (NEGATIVE)
[2023-07-29] MEDS: DICYCLOMINE HCL 20 MG TAB PO SCH (19:53)
[2023-07-29] MEDS: PANTOPRAZOLE 40 MG TAB DR PO SCH (19:53)
[2023-07-29 20:00] VITALS: BP 104/68; PULSE 101; RESP 16; O2SAT 98
[2023-07-30] VITALS: BP 80/47; PULSE 96; RESP 16
[2023-07-30 04:00] VITALS: BP 88/57; PULSE 97; RESP 16
[2023-07-30 05:06] LABS: BASOPHILS # (AUTO) 0.06 K/uL (0.00-0.20); BASOPHILS % (AUTO) 0.9 % (0.0-5.0); EOSINOPHILS # (AUTO) 0.19 K/uL (0.00-0.70); EOSINOPHILS % (AUTO) 2.7 % (0.0-8.0); IMMATURE GRANULOCYTE ABSOLUTE 0.02 K/uL (0-1); LYMPHOCYTES # (AUTO) 1.2 K/uL (1.0-4.8); LYMPHOCYTES % (AUTO) 17.5 % (21.0-51.0); MEAN CORPUSCULAR HGB CONC 31.6 g/dL (32.0-36.0); MEAN CORPUSCULAR VOLUME 85.4 fL (79-99); MONOCYTES # (AUTO) 0.7 K/uL (0.1-1.0); MONOCYTES % (AUTO) 9.4 % (3.0-13.0); NEUTROPHILS # (AUTO) 4.9 K/uL (1.8-7.7); NEUTROPHILS % (AUTO) 69.2 % (40.0-77.0); PLATELET COUNT (AUTO) 302 K/uL (130-400); RED BLOOD CELL COUNT(AUTO) 3.63 MIL/uL (4.50-6.20); RED CELL DISTRIBUTION WIDTH 13.8 % (11.0-15.5)
[2023-07-30 05:18] LABS: CREATININE 0.5 mg/dL (0.5-1.5); POTASSIUM 3.5 mmol/L (3.5-5.1)
[2023-07-30 05:27] LABS: BILIRUBIN,TOTAL 0.3 mg/dL (0.2-1.0); TOTAL PROTEIN, SERUM 6.4 g/dL (6.0-8.3)
[2023-07-30] MEDS: INSULIN HUMULIN R 100 UNIT/ML 3ML SQ SCH ×3 (05:38→17:10)
[2023-07-30 08:00] VITALS: BP 103/72; PULSE 91; RESP 16; O2SAT 100
[2023-07-30] MEDS: 0.9%NACL 1000ML 1,000 ML IV SCH ×2 (08:00)
[2023-07-30] MEDS: ENOXAPARIN SODIUM 30 MG/0.3 ML SQ SCH (08:51)
[2023-07-30] MEDS: PANTOPRAZOLE 40 MG TAB DR PO SCH (08:52)
[2023-07-30] MEDS: FAMOTIDINE 20MG VIAL IV SCH (08:52)
[2023-07-30] MEDS: DICYCLOMINE HCL 20 MG TAB PO SCH (08:52)
[2023-07-30] MEDS ORDERED: SERTRALINE HCL 50 MG TABLET PO SCH (09:00)
[2023-07-30] MEDS ORDERED: NON-FORMULARY MEDICATION 1 EACH (Sertraline HCl 25 MG) PO SCH (09:00)
[2023-07-30 12:00] VITALS: BP 83/52; PULSE 72; RESP 18
[2023-07-30] MEDS ORDERED: ERGO50CA PO (13:11)
[2023-07-30] MEDS ORDERED: LEVO88CA4 PO (13:11)
[2023-07-30 16:00] VITALS: BP 94/62; PULSE 86; RESP 18
[2023-07-30] MEDS: CEFTRIAXONE 2GM VIAL IVPB SCH (17:11)
[2023-07-30] MEDS ORDERED: ERGOCALCIFEROL PO SCH (19:00)
[2023-07-31] MEDS ORDERED: LEVOTHYROXINE 88 MCG TABLET PO SCH (06:30)
[2023-07-31] MEDS ORDERED: NON-FORMULARY MEDICATION 1 EACH (Levothyroxine Sodium (Levothyroxine) 88 MCG) PO SCH (09:00)
[2023-08-21] MEDS ORDERED: FERS325 PO (21:56)
[2023-08-22] MEDS ORDERED: INSU100C6 SQ (11:30)
[2023-08-31] MEDS ORDERED: INSU100V3 SQ (12:54)
[2023-08-31] MEDS ORDERED: TAMS-1 PO (12:54)
[2023-08-31] MEDS ORDERED: LEVOTHYROXINE 88 MCG PO (12:54)
[2023-08-31] MEDS ORDERED: SUCR1TAB PO (12:54)
[2023-08-31] MEDS ORDERED: FERR324T4 PO (12:54)
[2023-08-31] MEDS ORDERED: INSLAN SQ (12:54)
== END 2023-07-30 18:15 | disposition home or self-care (01) ==
LOC: EDH 05:11 → EDHIP 07:32 → 3DH 14:00
PROVIDERS: ADMIT Internal Medicine Critical Care Medicine; ATTEND Internal Medicine Critical Care Medicine
DX: A41.9 Sepsis, unspecified organism (principal); Z20.822 Contact with and (suspected) exposure to COVID-19; E11.10 Type 2 diabetes mellitus with ketoacidosis without coma; E11.649 Type 2 diabetes mellitus with hypoglycemia without coma; G92.8 Other toxic encephalopathy; J32.4 Chronic pansinusitis; J32.9 Chronic sinusitis, unspecified; R62.7 Adult failure to thrive; B96.89 Other specified bacterial agents as the cause of diseases classified elsewhere; F32.A Depression, unspecified; Z79.84 Long term (current) use of oral hypoglycemic drugs; Z68.1 Body mass index [BMI] 19.9 or less, adult; Z79.899 Other long term (current) drug therapy
CPT/HCPCS: 96376 ×2; 96372 ×2; 96361; 96365; 96375; 99284; 80050; 82550 ×2; 82803; 80305; 82140; 83690; 87880; 87804 ×2; 82948 ×9; 83605 ×2; 82010; 81001; 36415 ×2; 87635; 71045; 72170; 70450; 72125; 93005 ×2; 36600; 80053; 85025; 84439; 84481; 84145; G0378 ×33; G0481; C9803; J3490 ×5; J0696 ×2; J1650 ×2; J2543; J7131; J1815; 84443; 96374

== ENCOUNTER 2024-01-04 02:43 | Emergency (ER) | payer BC ==
[~2024-01-04] VITALS: Ht 157.5 cm; Wt 52.2 kg
[~2024-01-04 02:43] MED LIST changes: -BACI500P3 TP; -DICY20TA2 PO; +ERGO50CA PO; +FERR324T4 PO; +FERS325 PO; +GLIM2TAB30 PO; +INSLAN SQ; +INSU100C6 SQ; -INSU100I35 SQ; +INSU100V3 SQ; +LEVO88CA4 PO; +LEVOTHYROXINE 88 MCG PO; +METF-527 PO; -METO10TA41 PO; -MIDO10TA PO; -NAPR-1023 PO; -ONDA-104 PO; -PANT40TA55 PO; -POTA-192 PO; -SERT-438 PO; +SUCR1TAB PO; +TAMS-1 PO
[2024-01-04 03:12] LABS: BASOPHILS # (AUTO) 0.03 K/uL (0.00-0.20); BASOPHILS % (AUTO) 0.4 % (0.0-5.0); EOSINOPHILS # (AUTO) 0.03 K/uL (0.00-0.70); EOSINOPHILS % (AUTO) 0.4 % (0.0-8.0); HEMATOCRIT 32.9 % (42-54); IMMATURE GRANULOCYTE ABSOLUTE 0.03 K/uL (0-1); LYMPHOCYTES # (AUTO) 1.2 K/uL (1.0-4.8); LYMPHOCYTES % (AUTO) 17.5 % (21.0-51.0); MEAN CORPUSCULAR HEMOGLOBIN 26.3 pg (27.0-33.0); MEAN CORPUSCULAR HGB CONC 33.4 g/dL (32.0-36.0); MEAN CORPUSCULAR VOLUME 78.7 fL (79-99); MONOCYTES # (AUTO) 0.2 K/uL (0.1-1.0); MONOCYTES % (AUTO) 2.4 % (3.0-13.0); NEUTROPHILS # (AUTO) 5.3 K/uL (1.8-7.7); NEUTROPHILS % (AUTO) 78.9 % (40.0-77.0); PLATELET COUNT (AUTO) 365 K/uL (130-400); RED BLOOD CELL COUNT(AUTO) 4.18 MIL/uL (4.50-6.20); RED CELL DISTRIBUTION WIDTH 13.4 % (11.0-15.5); WHITE BLOOD COUNT (AUTO) 6.7 K/uL (4.8-10.8)
[2024-01-04 03:15] LABS: ABG BASE EXCESS -2.6 mmol/L (-2.0-3.0); ABG HCO3 21.7 mmol/L (21.0-28.0); ABG OXYGEN SATURATION 85.5 % (95.0-99.0); ABG PCO2 36 mmHg (35-48); ABG PH 7.393 (7.350-7.450); PO2, ARTERIAL BG 50.1 mmHg (83.0-108.0); VENT MODE, BG ROOM AIR (ROOM AIR)
[2024-01-04 03:17] LABS: POTASSIUM 3.7 mmol/L (3.5-5.1)
[2024-01-04 03:21] LABS: ALBUMIN 4.4 g/dL (3.5-5.0); BILIRUBIN,TOTAL 0.5 mg/dL (0.2-1.0); TOTAL PROTEIN, SERUM 8.3 g/dL (6.0-8.3)
[2024-01-04] MEDS: HALOPERIDOL INJ 5 MG/ML VIAL IV SCH (03:31)
[2024-01-04] MEDS ORDERED: ONDA-104 PO (05:10)
[2024-01-04] MEDS ORDERED: OMEP40CA21 PO (05:10)
[2024-01-04 05:16] VITALS: BP 108/56; PULSE 84; RESP 18; O2SAT 98
== END 2024-01-04 05:24 | disposition home or self-care (01) ==
LOC: EDH 02:43
DX: E11.9 Type 2 diabetes mellitus without complications (principal); R11.2 Nausea with vomiting, unspecified; E86.0 Dehydration; Z79.84 Long term (current) use of oral hypoglycemic drugs; Z79.4 Long term (current) use of insulin; Z79.899 Other long term (current) drug therapy
CPT/HCPCS: 99284; 96374; 80053; 82803; 85025; 82948; 82010; 36415; 36600; J1630

== ENCOUNTER 2024-01-05 20:26 | Emergency (ER) | payer BC ==
[~2024-01-05] VITALS: Ht 157.5 cm; Wt 50.3 kg
[~2024-01-05 20:26] MED LIST changes: +OMEP40CA21 PO; +ONDA-104 PO
[2024-01-05 22:01] LABS: BASOPHILS # (AUTO) 0.06 K/uL (0.00-0.20); BASOPHILS % (AUTO) 0.9 % (0.0-5.0); EOSINOPHILS # (AUTO) 0.04 K/uL (0.00-0.70); EOSINOPHILS % (AUTO) 0.6 % (0.0-8.0); HEMATOCRIT 34.6 % (42-54); IMMATURE GRANULOCYTE ABSOLUTE 0.03 K/uL (0-1); LYMPHOCYTES # (AUTO) 1.2 K/uL (1.0-4.8); LYMPHOCYTES % (AUTO) 18.6 % (21.0-51.0); MEAN CORPUSCULAR HEMOGLOBIN 26.6 pg (27.0-33.0); MEAN CORPUSCULAR HGB CONC 33.2 g/dL (32.0-36.0); MEAN CORPUSCULAR VOLUME 80.1 fL (79-99); MONOCYTES # (AUTO) 0.2 K/uL (0.1-1.0); MONOCYTES % (AUTO) 3.2 % (3.0-13.0); NEUTROPHILS % (AUTO) 76.2 % (40.0-77.0); PLATELET COUNT (AUTO) 366 K/uL (130-400); RED BLOOD CELL COUNT(AUTO) 4.32 MIL/uL (4.50-6.20); RED CELL DISTRIBUTION WIDTH 13.2 % (11.0-15.5); WHITE BLOOD COUNT (AUTO) 6.6 K/uL (4.8-10.8)
[2024-01-05 22:11] LABS: POTASSIUM 4.1 mmol/L (3.5-5.1)
[2024-01-05 22:15] LABS: ALBUMIN 4.4 g/dL (3.5-5.0); BILIRUBIN,TOTAL 0.6 mg/dL (0.2-1.0); TOTAL PROTEIN, SERUM 8.3 g/dL (6.0-8.3)
[2024-01-06 00:29] LABS: BILIRUBIN,URINE NEGATIVE (NEGATIVE); COLOR,URINE YELLOW (YELLOW); GLUCOSE, URINE (UA) 30 mg/dL (NEGATIVE); KETONES,URINE 60 mg/dL (NEGATIVE); LEUKOCYTE ESTERASE ,URINE 250 Leu/uL (NEGATIVE); NITRATE,URINE NEGATIVE (NEGATIVE); OCCULT BLOOD,URINE NEGATIVE (NEGATIVE); PH,URINE 5.5 (5.0-8.0); PROTEIN,URINE 30 mg/dL (NEGATIVE); UROBILINOGEN,URINE 0.2 mg/dL (0.2-1.0)
[2024-01-06 00:33] LABS: ADD UA MICROSCOPIC YES; APPEARANCE,URINE CLOUDY (CLEAR)
[2024-01-06 00:37] LABS: BACTERIA,URINE MANY /HPF (None Seen); MUCUS,URINE RARE LPF (None Seen); YEAST,URINE BUDDING MANY /HPF (None Seen)
[2024-01-06] MEDS: HALOPERIDOL INJ 5 MG/ML VIAL IV SCH (00:50)
[2024-01-06] MEDS: 0.9%NACL 1000ML 1,000 ML IV ONE (00:50)
[2024-01-06] MEDS: DICYCLOMINE 20MG (10MG/ML) AMP IM ONE (00:51)
[2024-01-06 02:16] VITALS: BP 103/68; PULSE 94; RESP 18; O2SAT 99
[2024-01-06] MEDS ORDERED: DICY20TA2 PO (02:37)
== END 2024-01-06 03:04 | disposition home or self-care (01) ==
LOC: EDH 20:26
DX: K31.84 Gastroparesis (principal); E11.43 Type 2 diabetes mellitus with diabetic autonomic (poly)neuropathy; I10 Essential (primary) hypertension; E11.9 Type 2 diabetes mellitus without complications; E78.00 Pure hypercholesterolemia, unspecified; Z79.84 Long term (current) use of oral hypoglycemic drugs; Z79.899 Other long term (current) drug therapy; Z98.890 Other specified postprocedural states; Z87.19 Personal history of other diseases of the digestive system
CPT/HCPCS: 99284; 96374; 80053; 83690; 85025; 87088; 81001; 36415; 96372; J7030; J1630; J0500

== ENCOUNTER 2024-03-09 07:40 | Emergency (ER) | payer BC ==
[~2024-03-09] VITALS: Ht 157.5 cm; Wt 54.4 kg
[~2024-03-09 07:40] MED LIST changes: +DICY20TA2 PO; -GLIM2TAB30 PO; -INSU100C6 SQ; -LEVO88CA4 PO; +MAGN400T7 PO; -METF-527 PO; +POTA-364 PO; -TAMS-1 PO
[2024-03-09 08:14] LABS: BASOPHILS # (AUTO) 0.04 K/uL (0.00-0.20); BASOPHILS % (AUTO) 0.8 % (0.0-5.0); HEMATOCRIT 34.2 % (42-54); IMMATURE GRANULOCYTE ABSOLUTE 0.02 K/uL (0-1); LYMPHOCYTES # (AUTO) 0.8 K/uL (1.0-4.8); LYMPHOCYTES % (AUTO) 15.4 % (21.0-51.0); MEAN CORPUSCULAR HEMOGLOBIN 26.6 pg (27.0-33.0); MEAN CORPUSCULAR HGB CONC 32.5 g/dL (32.0-36.0); MEAN CORPUSCULAR VOLUME 81.8 fL (79-99); MONOCYTES # (AUTO) 0.1 K/uL (0.1-1.0); NEUTROPHILS % (AUTO) 79.4 % (40.0-77.0); PLATELET COUNT (AUTO) 364 K/uL (130-400); RED BLOOD CELL COUNT(AUTO) 4.18 MIL/uL (4.50-6.20); RED CELL DISTRIBUTION WIDTH 14.5 % (11.0-15.5); WHITE BLOOD COUNT (AUTO) 5.1 K/uL (4.8-10.8)
[2024-03-09] MEDS: FAMOTIDINE 20MG VIAL IV ONE (08:15)
[2024-03-09] MEDS: KETOROLAC 30MG VIAL (30MG/ML) IVP ONE (08:15)
[2024-03-09] MEDS: ONDANSETRON 4MG INJ IVP ONE (08:15)
[2024-03-09] MEDS: LACTATED RINGERS 1000ML 1,000 ML IV ONE (08:15)
[2024-03-09 08:24] LABS: POTASSIUM 3.9 mmol/L (3.5-5.1)
[2024-03-09 08:28] LABS: ALBUMIN 4.3 g/dL (3.5-5.0); BILIRUBIN,TOTAL 0.7 mg/dL (0.2-1.0)
[2024-03-09] MEDS ORDERED: PROC5TAB54 PO (10:11)
[2024-03-09 10:51] VITALS: BP 110/71; PULSE 92; RESP 16; O2SAT 97
== END 2024-03-09 10:59 | disposition home or self-care (01) ==
LOC: EDH 07:40
DX: R11.10 Vomiting, unspecified (principal); R10.9 Unspecified abdominal pain; E03.9 Hypothyroidism, unspecified; E11.9 Type 2 diabetes mellitus without complications; Z79.4 Long term (current) use of insulin; Z79.899 Other long term (current) drug therapy
CPT/HCPCS: 99284; 96374; 96375; 84484; 80053; 83690; 85025; 82948; 36415; 74021; 93005; J7120; J3490; J2405; J1885

== ENCOUNTER 2024-04-11 19:32 | Inpatient (IN) | payer BC ==
[~2024-04-11] VITALS: Ht 157.5 cm; Wt 52.6 kg
[~2024-04-11 19:32] MED LIST changes: +ERGO500093 PO; -ERGO50CA PO; -FERR324T4 PO; +FERR325T29 PO; -FERS325 PO; +FOLI1 PO; +GLIM2TAB30 PO; -INSLAN SQ; -INSU100V3 SQ; +INSU100V51 SQ; +LEVO88TA7 PO; -LEVOTHYROXINE 88 MCG PO; -MAGN400T7 PO; +METF-446 PO; -ONDA-104 PO; -POTA-364 PO; +PROC5TAB54 PO; -SUCR1TAB PO
[2024-04-11 20:02] LABS: BASOPHILS # (AUTO) 0.03 K/uL (0.00-0.20); BASOPHILS % (AUTO) 0.7 % (0.0-5.0); EOSINOPHILS # (AUTO) 0.07 K/uL (0.00-0.70); EOSINOPHILS % (AUTO) 1.6 % (0.0-8.0); HEMATOCRIT 31.4 % (42-54); IMMATURE GRANULOCYTE ABSOLUTE 0.06 K/uL (0-1); LYMPHOCYTES # (AUTO) 1.1 K/uL (1.0-4.8); MEAN CORPUSCULAR HEMOGLOBIN 26.2 pg (27.0-33.0); MEAN CORPUSCULAR HGB CONC 31.8 g/dL (32.0-36.0); MEAN CORPUSCULAR VOLUME 82.4 fL (79-99); MONOCYTES # (AUTO) 0.2 K/uL (0.1-1.0); MONOCYTES % (AUTO) 3.5 % (3.0-13.0); NEUTROPHILS # (AUTO) 2.9 K/uL (1.8-7.7); NEUTROPHILS % (AUTO) 66.8 % (40.0-77.0); PLATELET COUNT (AUTO) 369 K/uL (130-400); RED BLOOD CELL COUNT(AUTO) 3.81 MIL/uL (4.50-6.20); RED CELL DISTRIBUTION WIDTH 13.8 % (11.0-15.5); WHITE BLOOD COUNT (AUTO) 4.3 K/uL (4.8-10.8)
[2024-04-11 20:12] LABS: CREATININE 0.7 mg/dL (0.5-1.3)
[2024-04-11 20:17] LABS: ALBUMIN 3.8 g/dL (3.5-5.0); BILIRUBIN,TOTAL 0.4 mg/dL (0.2-1.0); TOTAL PROTEIN, SERUM 7.5 g/dL (6.0-8.3)
[2024-04-11] MEDS: ONDANSETRON 4MG INJ IVP ONE ×2 (22:14→23:11)
[2024-04-11] MEDS: KETOROLAC 30MG VIAL (30MG/ML) IVP ONE (22:15)
[2024-04-11] MEDS: 0.9%NACL 1000ML 1,000 ML IV ONE (22:15)
[2024-04-11] MEDS ORDERED: IOHEXOL-350 75 ML VIAL IV ONE (22:20)
[2024-04-11] MEDS: MORPHINE 4 MG SYG IVP ONE (23:11)
[2024-04-12 00:30] LABS: AMPHET/METH SCREEN,URINE NEGATIVE (NEGATIVE); BARBITURATE SCREEN, URINE NEGATIVE (NEGATIVE); BENZODIAZEPINES SCREEN,URINE NEGATIVE (NEGATIVE); CANNABINOID SCREEN,URINE NEGATIVE (NEGATIVE); COCAINE SCREEN,URINE NEGATIVE (NEGATIVE); OPIATE SCREEN,URINE NEGATIVE (NEGATIVE); PHENCYCLIDINE SCREEN,URINE NEGATIVE (NEGATIVE)
[2024-04-12] MEDS: PROMETHAZINE HCL 25 MG/ML 1ML AMPULE IM ONE (00:32)
[2024-04-12] MEDS ORDERED: ACETAMINOPHEN 650 MG SUPPOSITORY RC PRN (01:00)
[2024-04-12] MEDS ORDERED: TEMAZEPAM 15 MG CAPSULE PO PRN (01:00)
[2024-04-12] MEDS ORDERED: DOCUSATE SODIUM 100 MG CAP PO PRN (01:00)
[2024-04-12] MEDS ORDERED: HYDRALAZINE 20MG/ML VIAL IV PRN (01:00)
[2024-04-12] MEDS ORDERED: LACTULOSE 20 GM/30 ML UDCUP PO PRN (01:00)
[2024-04-12] MEDS ORDERED: ACETAMINOPHEN 325 MG TAB PO PRN (01:00)
[2024-04-12] MEDS: LACTATED RINGERS 1000ML 1,000 ML IV SCH (01:13)
[2024-04-12] MEDS: PANTOPRAZOLE 40 MG/VIAL IVP ONE (01:13)
[2024-04-12 01:23] LABS: ABG OXYGEN SATURATION 72.8 % (95.0-99.0); BASE EXCESS,VENOUS BLOOD GAS -2.3 (-2.0-3.0); DEVICE COMMENT VENOUS; HCO3,VENOUS BLOOD GAS 22.5 (21.0-28.0); PCO2,VENOUS BLOOD GAS 39 (32-45); PH,VENOUS BLOOD GAS 7.382 (7.350-7.450); PO2,VENOUS BLOOD GAS 35.9 mmHg (35.0-45.0); VENT MODE, BG RA (ROOM AIR)
[2024-04-12 01:38] LABS: RAPID GROUP A STREP negative (NEGATIVE)
[2024-04-12 01:46] LABS: INFLUENZA TYPE A Negative For Type A (NEGATIVE); INFLUENZA TYPE B Negative For Type B (NEGATIVE)
[2024-04-12 01:49] LABS: SARS-CoV-2, RNA, NAAT POSITIVE SARS CoV-2 (NEGATIVE)
[2024-04-12] MEDS: HYDROMORPHONE 1 MG INJ IVP ONE (02:31)
[2024-04-12 03:28] VITALS: BP 118/75; PULSE 113; RESP 18
[2024-04-12] MEDS: ONDANSETRON 4MG INJ IVP PRN (03:45)
[2024-04-12] MEDS: INSULIN HUMULIN R 100 UNIT/ML 3ML SQ SCH (06:00)
[2024-04-12 07:40] VITALS: O2SAT 96
[2024-04-12] MEDS: ENOXAPARIN SODIUM 40 MG/0.4 ML SYRINGE SQ SCH (08:16)
[2024-04-12] MEDS: PROMETHAZINE HCL 25 MG/ML 1ML AMPULE IM PRN (08:16)
[2024-04-12 08:39] VITALS: BP 97/59; PULSE 115; RESP 19
[2024-04-12] MEDS: KETOROLAC 15MG/ML VIAL (15MG/ML) IV PRN (11:21)
[2024-04-12 12:16] VITALS: BP 91/41; PULSE 115; RESP 16
[2024-04-12] MEDS ORDERED: PROCHLORPERAZINE MALEATE PO PRN (15:30)
[2024-04-12] MEDS ORDERED: LACE ASSESSMENT (SCORE > 11) MISC SCH (15:30)
[2024-04-12 16:50] VITALS: BP 91/68; PULSE 109; RESP 19
[2024-04-12] MEDS ORDERED: METOCLOPRAMIDE 10 MG/2 ML VIAL IVP SCH (17:00)
[2024-04-12 20:00] VITALS: BP 105/67; PULSE 102; RESP 18; O2SAT 99
[2024-04-12] MEDS: DICYCLOMINE HCL 20 MG TAB PO SCH (21:00)
[2024-04-13] VITALS (8 sets, daily range): BP systolic 111–137; BP diastolic 71–95; PULSE 80–107; RESP 16–18; O2SAT 98–99
[2024-04-13] MEDS: LEVOTHYROXINE 88 MCG TABLET PO SCH (05:36)
[2024-04-13 05:59] LABS: CREATININE 0.7 mg/dL (0.5-1.3); MAGNESIUM 1.8 mg/dL (1.80-2.40); PHOSPHORUS 2.9 mg/dL (2.5-4.9); POTASSIUM 3.2 mmol/L (3.5-5.1)
[2024-04-13 06:14] LABS: BASOPHILS # (AUTO) 0.01 K/uL (0.00-0.20); BASOPHILS % (AUTO) 0.1 % (0.0-5.0); IMMATURE GRANULOCYTE ABSOLUTE 0.08 K/uL (0-1); LYMPHOCYTES % (AUTO) 14.6 % (21.0-51.0); MEAN CORPUSCULAR HEMOGLOBIN 26.4 pg (27.0-33.0); MEAN CORPUSCULAR HGB CONC 32.5 g/dL (32.0-36.0); MEAN CORPUSCULAR VOLUME 81.2 fL (79-99); MONOCYTES # (AUTO) 0.4 K/uL (0.1-1.0); MONOCYTES % (AUTO) 6.2 % (3.0-13.0); NEUTROPHILS # (AUTO) 5.4 K/uL (1.8-7.7); NEUTROPHILS % (AUTO) 77.9 % (40.0-77.0); PLATELET COUNT (AUTO) 374 K/uL (130-400); RED BLOOD CELL COUNT(AUTO) 3.45 MIL/uL (4.50-6.20); RED CELL DISTRIBUTION WIDTH 13.7 % (11.0-15.5); WHITE BLOOD COUNT (AUTO) 6.9 K/uL (4.8-10.8)
[2024-04-13] MEDS: FERROUS SULFATE PO SCH (08:35)
[2024-04-13] MEDS: INSULIN GLARGINE 100 UNITS/ML 10 ML VIAL SQ SCH (08:37)
[2024-04-13] MEDS: POTASSIUM CHLORIDE 20MEQ/100ML 100 ML IV PRN (09:13)
[2024-04-13] MEDS: HYDROMORPHONE 0.5 MG SYG (0.5MG/0.5ML) IVP PRN (13:21)
[2024-04-13] MEDS: ERYTHROMYCIN LACTOBIONATE 250 MG in 0.9%NACL 100ML 100 ML IV SCH (20:54)
[2024-04-14] MEDS: MAGNESIUM 2GM PREMIX 50ML 50 ML IV PRN (01:23)
[2024-04-14 02:02] LABS: APPEARANCE,URINE CLOUDY (CLEAR); BILIRUBIN,URINE NEGATIVE (NEGATIVE); COLOR,URINE LIGHT-YELLOW (YELLOW); GLUCOSE, URINE (UA) >=1000 mg/dL (NEGATIVE); KETONES,URINE 100 mg/dL (NEGATIVE); LEUKOCYTE ESTERASE ,URINE 75 Leu/uL (NEGATIVE); NITRATE,URINE NEGATIVE (NEGATIVE); OCCULT BLOOD,URINE NEGATIVE (NEGATIVE); PROTEIN,URINE 20 mg/dL (NEGATIVE); UROBILINOGEN,URINE 0.2 mg/dL (0.2-1.0)
[2024-04-14 02:03] LABS: ADD UA MICROSCOPIC YES
[2024-04-14 02:07] LABS: BACTERIA,URINE RARE /HPF (None Seen); MUCUS,URINE RARE LPF (None Seen); RBC,URINE TNTC /HPF (0-1); SQUAMOUS EPITHELIAL CELL,UR RARE /HPF (0-2); WBC,URINE 26-50 /HPF (0-1); YEAST,URINE BUDDING MANY /HPF (None Seen)
[2024-04-14 03:00] VITALS: BP 114/80; PULSE 98; RESP 16
[2024-04-14 06:08] LABS: BASOPHILS # (AUTO) 0.01 K/uL (0.00-0.20); BASOPHILS % (AUTO) 0.2 % (0.0-5.0); HEMATOCRIT 28.7 % (42-54); IMMATURE GRANULOCYTE ABSOLUTE 0.07 K/uL (0-1); LYMPHOCYTES # (AUTO) 1.2 K/uL (1.0-4.8); LYMPHOCYTES % (AUTO) 21.4 % (21.0-51.0); MEAN CORPUSCULAR HEMOGLOBIN 26.2 pg (27.0-33.0); MEAN CORPUSCULAR HGB CONC 32.1 g/dL (32.0-36.0); MEAN CORPUSCULAR VOLUME 81.8 fL (79-99); MONOCYTES # (AUTO) 0.6 K/uL (0.1-1.0); MONOCYTES % (AUTO) 9.7 % (3.0-13.0); NEUTROPHILS # (AUTO) 3.9 K/uL (1.8-7.7); NEUTROPHILS % (AUTO) 67.5 % (40.0-77.0); PLATELET COUNT (AUTO) 357 K/uL (130-400); RED BLOOD CELL COUNT(AUTO) 3.51 MIL/uL (4.50-6.20); RED CELL DISTRIBUTION WIDTH 13.5 % (11.0-15.5); WHITE BLOOD COUNT (AUTO) 5.8 K/uL (4.8-10.8)
[2024-04-14 06:17] LABS: CREATININE 0.6 mg/dL (0.5-1.3); POTASSIUM 3.1 mmol/L (3.5-5.1)
[2024-04-14 07:52] VITALS: BP 148/83; PULSE 100; RESP 18
[2024-04-14 08:00] VITALS: O2SAT 98
[2024-04-14] MEDS ORDERED: CALCIUM CARB 500MG CHEW TAB PO SCH (11:30)
[2024-04-14] MEDS ORDERED: ERYTHROMYCIN LACTOBIONATE 250 MG in 0.9%NACL 100ML 100 ML IV SCH (11:30)
[2024-04-14] MEDS: ERYTHROMYCIN LACTOBIONATE 250 MG in 0.9%NACL 100ML 100 ML IV SCH (11:30)
[2024-04-14] MEDS ORDERED: COMPOUND IV MISC 1 EACH IVSOLN MISC PRN (11:30)
[2024-04-14] MEDS ORDERED: COMPOUND IV REFRIGERATED 1 EACH IVSOLN MISC PRN (11:30)
[2024-04-14 11:46] VITALS: BP 121/82; PULSE 105; RESP 18
[2024-04-14 16:00] VITALS: BP 120/90; PULSE 102; RESP 18
[2024-04-14 20:00] VITALS: BP 132/93; PULSE 97; RESP 18; O2SAT 97
[2024-04-15] VITALS: BP 148/96; PULSE 99; RESP 18
[2024-04-15 04:00] VITALS: BP 128/90; PULSE 101; RESP 18
[2024-04-15 05:42] LABS: BASOPHILS # (AUTO) 0.01 K/uL (0.00-0.20); BASOPHILS % (AUTO) 0.2 % (0.0-5.0); HEMATOCRIT 28.6 % (42-54); IMMATURE GRANULOCYTE ABSOLUTE 0.05 K/uL (0-1); LYMPHOCYTES # (AUTO) 1.2 K/uL (1.0-4.8); LYMPHOCYTES % (AUTO) 21.4 % (21.0-51.0); MEAN CORPUSCULAR HEMOGLOBIN 26.1 pg (27.0-33.0); MEAN CORPUSCULAR HGB CONC 32.5 g/dL (32.0-36.0); MEAN CORPUSCULAR VOLUME 80.1 fL (79-99); MONOCYTES # (AUTO) 0.6 K/uL (0.1-1.0); MONOCYTES % (AUTO) 11.1 % (3.0-13.0); NEUTROPHILS # (AUTO) 3.7 K/uL (1.8-7.7); NEUTROPHILS % (AUTO) 66.4 % (40.0-77.0); PLATELET COUNT (AUTO) 339 K/uL (130-400); RED BLOOD CELL COUNT(AUTO) 3.57 MIL/uL (4.50-6.20); RED CELL DISTRIBUTION WIDTH 13.2 % (11.0-15.5); WHITE BLOOD COUNT (AUTO) 5.6 K/uL (4.8-10.8)
[2024-04-15 05:59] LABS: CREATININE 0.6 mg/dL (0.5-1.3); POTASSIUM 3.2 mmol/L (3.5-5.1)
[2024-04-15 08:00] VITALS: BP_SYST 116; BP_SYST 139; BP_DIAS 40; BP_DIAS 91; PULSE 67; PULSE 89; RESP 16; RESP 18; O2SAT 99
[2024-04-15] MEDS: PANTOPRAZOLE 40 MG/VIAL IVP SCH (08:58)
[2024-04-15 11:48] VITALS: BP 140/93; PULSE 100; RESP 20
[2024-04-15 16:00] VITALS: BP 111/75; PULSE 103; RESP 18
[2024-04-15 20:00] VITALS: BP 131/94; PULSE 99; RESP 18; O2SAT 99
[2024-04-15] MEDS: TRAMADOL HCL 50 MG TABLET PO PRN (21:04)
[2024-04-16] VITALS (7 sets, daily range): BP systolic 102–139; BP diastolic 72–95; PULSE 85–98; RESP 16–18; O2SAT 98–99
[2024-04-16] MEDS: DEXTROSE 50%-WATER 50 ML DISP.SYRIN IV ONE (05:29)
[2024-04-16 05:52] LABS: BASOPHILS # (AUTO) 0.02 K/uL (0.00-0.20); BASOPHILS % (AUTO) 0.3 % (0.0-5.0); EOSINOPHILS # (AUTO) 0.01 K/uL (0.00-0.70); EOSINOPHILS % (AUTO) 0.2 % (0.0-8.0); HEMATOCRIT 27.9 % (42-54); IMMATURE GRANULOCYTE ABSOLUTE 0.04 K/uL (0-1); LYMPHOCYTES # (AUTO) 1.4 K/uL (1.0-4.8); LYMPHOCYTES % (AUTO) 23.4 % (21.0-51.0); MEAN CORPUSCULAR HEMOGLOBIN 26.1 pg (27.0-33.0); MEAN CORPUSCULAR HGB CONC 33.3 g/dL (32.0-36.0); MEAN CORPUSCULAR VOLUME 78.4 fL (79-99); MONOCYTES # (AUTO) 0.5 K/uL (0.1-1.0); MONOCYTES % (AUTO) 8.8 % (3.0-13.0); NEUTROPHILS % (AUTO) 66.6 % (40.0-77.0); PLATELET COUNT (AUTO) 336 K/uL (130-400); RED BLOOD CELL COUNT(AUTO) 3.56 MIL/uL (4.50-6.20); RED CELL DISTRIBUTION WIDTH 13.2 % (11.0-15.5)
[2024-04-16 06:01] LABS: CREATININE 0.5 mg/dL (0.5-1.3)
[2024-04-16 06:07] LABS: POTASSIUM 2.7 mmol/L (3.5-5.1)
[2024-04-16] MEDS ORDERED: [UNRECOGNIZED DRUG - CODE] PO (16:30)
[2024-04-16] MEDS: ERYTHROMYCIN LACTOBIONATE 250 MG in 0.9%NACL 100ML 100 ML IV SCH (17:44)
[2024-04-16] MEDS: POTASSIUM CHLORIDE 10% ELIXIR 20 MEQ/15 ML UDCUP PO PRN (22:28)
[2024-04-16] MEDS: KCL 20 MEQ ERTAB PO PRN (22:28)
[2024-04-17] VITALS: BP 97/62; PULSE 97; RESP 20
[2024-04-17 04:00] VITALS: BP_SYST 104; BP_SYST 115; BP_DIAS 67; BP_DIAS 71; PULSE 84; PULSE 91; RESP 16; RESP 20
[2024-04-17 07:20] VITALS: BP 128/66; PULSE 68; RESP 17
[2024-04-17 09:20] VITALS: O2SAT 96
[2024-04-17 11:48] VITALS: BP 113/68; PULSE 98; RESP 20
[2024-04-17 12:07] LABS: CHOLESTEROL 173 mg/dL (<200); HDL CHOLESTEROL 38 mg/dL (29-71); LDL DIRECT 113 mg/dL (0-99); TRIGLYCERIDES 98 mg/dL (30-200)
[2024-04-17 15:10] VITALS: BP 116/70; PULSE 97; RESP 20
== END 2024-04-17 21:05 | disposition home or self-care (01) | DRG 73 ==
LOC: EDH 19:32 → EDHIP 04-12 00:42 → OBSVTOIN 04-12 00:42 → 3BH 04-12 02:52 → 3AH 04-14 21:03
PROVIDERS: ADMIT Internal Medicine Pulmonary Disease; ATTEND Internal Medicine Pulmonary Disease
DX: E10.43 Type 1 diabetes mellitus with diabetic autonomic (poly)neuropathy (principal); U07.1 COVID-19; K58.0 Irritable bowel syndrome with diarrhea; I95.1 Orthostatic hypotension; K31.84 Gastroparesis; F32.A Depression, unspecified; D64.9 Anemia, unspecified; E03.9 Hypothyroidism, unspecified; E10.65 Type 1 diabetes mellitus with hyperglycemia; K29.70 Gastritis, unspecified, without bleeding; Z91.148 Patient's other noncompliance with medication regimen for other reason; Z91.199 Patient's noncompliance with other medical treatment and regimen due to unspecified reason
CPT/HCPCS: 36415; 36600; 71045; 74177; 80048; 80053; 80061; 80305; 81001; 82150; 82306; 82435; 82607; 82803; 82947; 82948; 83036; 83605; 83690; 83735; 84100; 84132; 84295; 84484; 85025; 85378; 87086; 87635; 87804; 87880; 92610; 93005; G0378; J1170; J1364; J1650; J1815; J1885; J2270; J2405; J2470; J2550; J3475; J3480; J7030; J7070; J7120; Q9967